=== PATIENT | male | born 1965 | race Caucasian/White ===

== ENCOUNTER 2020-05-18 11:21 | Outpatient (REF) | payer OTHER, SELFPAY ==
[2020-05-18 13:11] LABS: Alanine Aminotransferase 8 U/L (0-40); Albumin Level 4.5 g/dL (3.5-5.0); Alkaline Phosphatase 65 U/L (39-117); Anion Gap 16 (12-20); Aspartate Amino Transferase 15 U/L (5-37); Bilirubin Total 0.5 mg/dL (0.0-1.0); Blood Urea Nitrogen 12 mg/dL (9-16); Calcium 9.2 mg/dL (8.4-10.2); Carbon Dioxide 21 mmol/L (22-29); Chloride 106 mmol/L (96-108); Cholesterol 167 mg/dL; Estimated Glomerular Filt Rate > 60; Glucose Fasting 83 mg/dL (60-99); HDL Cholesterol 36 mg/dL; LDL Cholesterol Calculated 95 mg/dl; Potassium 4.5 mmol/l (3.3-5.1); Sodium 138 mmol/L (135-145); Total Protein 6.8 g/dL (6.5-8.0); Triglycerides 183 mg/dL
== END 2020-05-18 11:22 | disposition home or self-care (01) ==
LOC: HO.LAB 11:21
PROVIDERS: PCP Internal Medicine; Visit Provider Internal Medicine
DX: E78.2 Mixed hyperlipidemia (principal)
CPT/HCPCS: 80053; 80061

== ENCOUNTER → 2020-05-20 10:02 | Outpatient (BNVA) | payer OTHER, SELFPAY | PROVIDERS: PCP Internal Medicine; Visit Provider Internal Medicine | DX: Z72.89 Other problems related to lifestyle (principal); F17.200 Nicotine dependence, unspecified, uncomplicated; Z71.6 Tobacco abuse counseling | CPT/HCPCS: 80305; 99212 ==

== ENCOUNTER → 2020-08-17 10:37 | Outpatient (BNVA) | payer OTHER, SELFPAY | PROVIDERS: Visit Provider Internal Medicine ==

== ENCOUNTER 2020-11-17 13:49 | Outpatient (REF) | payer OTHER, SELFPAY ==
--- NOTE | ~2020-11-17 | XR_ITS ---
EXAMINATION: XR LUMBOSACRAL SPINE CLINICAL INFORMATION: Low back pain COMPARISON: CT abdomen pelvis January 27, 2018 TECHNIQUE: Three views of the lumbosacral spine. FINDINGS: 5 nonrib-bearing lumbar vertebral bodies are visualized. There is minimal levoscoliosis centered at L3. There is also mild anterolisthesis of L5 on S1. There are mild degenerative changes of the posterior elements of the lower lumbar spine. Sacroiliac joints are symmetric. Small vascular calcifications are noted. XR/XR lumbar spine 2-3V IMPRESSION: Mild degenerative changes of the lower lumbar spine. No compression deformity.
[2020-11-17 15:17] LABS: MANUAL DIFF FLAG NO
[2020-11-17 15:22] LABS: Basophils Absolute Auto 0.1 X10*3/uL (0.0-0.2); Basophils Percent Auto 0.8 % (0-2); Eosinophils Absolute Auto 0.2 X10*3/uL (0.0-0.4); Eosinophils Percent Auto 1.7 % (0-4); Hematocrit 47.3 % (42-52); Hemoglobin 15.7 g/dl (14.0-18.0); Imm Gran Abs Auto 0.05 X10*3/uL (0.00-0.03); Imm Gran Pct Auto 0.6 % (0.0-0.4); Lymphocytes Absolute Auto 2.3 X10*3/uL (1.2-4.9); Lymphocytes Percent Auto 26.2 % (20-40); Mean Corpuscular HGB Conc 33.2 g/dl (31.0-36.0); Mean Corpuscular Hemoglobin 30.9 pg (27.0-33.0); Mean Corpuscular Volume 93.1 fL (80-98); Mean Platelet Volume 9.4 fL (9.4-12.4); Monocytes Absolute Auto 0.7 X10*3/uL (0.1-1.2); Monocytes Percent Auto 7.7 % (2-11); Neutrophils Absolute Auto 5.4 X10*3/uL (2.0-8.3); Platelet Count 287 X10*3/uL (160-400); Red Blood Count 5.08 X10*6/uL (4.60-5.80); Red Cell Distribution Width 13.2 % (11.0-16.0); White Blood Count 8.6 X10*3/uL (4.8-10.8)
[2020-11-17 15:37] LABS: Alanine Aminotransferase 9 U/L (0-40); Albumin Level 4.6 g/dL (3.5-5.0); Alkaline Phosphatase 70 U/L (39-117); Anion Gap 14 (12-20); Aspartate Amino Transferase 13 U/L (5-37); Bilirubin Total 0.4 mg/dL (0.0-1.0); Blood Urea Nitrogen 11 mg/dL (9-16); C Reactive Protein 0.07 mg/dL (< or = 0.50); Calcium 9.7 mg/dL (8.4-10.2); Carbon Dioxide 26 mmol/L (22-29); Chloride 106 mmol/L (96-108); Cholesterol 201 mg/dL; Estimated Glomerular Filt Rate > 60; Glucose Fasting 85 mg/dL (60-99); HDL Cholesterol 35 mg/dL; LDL Cholesterol Calculated 121 mg/dl; Potassium 4.6 mmol/L (3.3-5.1); Rheumatoid Factor < 15.0 IU/mL (<15.0); Sodium 141 mmol/L (135-145); Triglycerides 227 mg/dL
[2020-11-17 15:44] LABS: Estimated Average Glucose 94 mg/dL; Hemoglobin A1c % 4.9 %
[2020-11-17 16:01] LABS: TSH reflex Free T4 1.32 uIU/mL (0.32-4.0); Vitamin D 25-OH Total 4.1 ng/mL (>30)
[2020-11-17 16:26] LABS: Erythrocyte Sedimentation Rate 2 MM/HR (0-15)
== END 2020-11-17 13:50 | disposition home or self-care (01) ==
LOC: HO.LAB 13:49
PROVIDERS: PCP Internal Medicine; Visit Provider Internal Medicine
DX: M54.5 Low back pain (principal); I10 Essential (primary) hypertension; R73.01 Impaired fasting glucose; E55.9 Vitamin D deficiency, unspecified; E78.00 Pure hypercholesterolemia, unspecified; M06.9 Rheumatoid arthritis, unspecified; E78.2 Mixed hyperlipidemia
CPT/HCPCS: 36415; 72100; 80053; 80061; 82306; 83036; 84443; 85025; 85652; 86140; 86431

== ENCOUNTER → 2020-12-08 11:05 | Outpatient (BNVA) | payer OTHER, SELFPAY | PROVIDERS: PCP Internal Medicine; Visit Provider Internal Medicine | DX: Z72.89 Other problems related to lifestyle (principal) | CPT/HCPCS: 80305; 99212 ==

== ENCOUNTER 2022-09-05 08:59 | Outpatient (REF) | payer OTHER, SELFPAY ==
[2022-09-05 09:22] LABS: MANUAL DIFF FLAG NO
[2022-09-05 10:50] LABS: Basophils Absolute Auto 0.1 X10*3/uL (0.0-0.2); Basophils Percent Auto 0.7 % (0-2); Eosinophils Absolute Auto 0.3 X10*3/uL (0.0-0.4); Eosinophils Percent Auto 3.2 % (0-4); Hematocrit 48.2 % (42.0-52.0); Hemoglobin 16.2 g/dl (14.0-18.0); Imm Gran Abs Auto 0.03 X10*3/uL (0.00-0.03); Imm Gran Pct Auto 0.4 % (0.0-0.4); Lymphocytes Absolute Auto 2.4 X10*3/uL (1.2-4.9); Lymphocytes Percent Auto 28.3 % (20-40); Mean Corpuscular HGB Conc 33.6 g/dl (31.0-36.0); Mean Corpuscular Hemoglobin 30.9 pg (27.0-33.0); Mean Corpuscular Volume 91.8 fL (80.0-98.0); Mean Platelet Volume 9.8 fL (9.4-12.4); Monocytes Absolute Auto 0.7 X10*3/uL (0.1-1.2); Monocytes Percent Auto 7.8 % (2-11); Neutrophils Percent Auto 59.6 % (45-73); Platelet Count 293 X10*3/uL (160-400); Red Blood Count 5.25 X10*6/uL (4.60-5.80); Red Cell Distribution Width 13.2 % (11.0-16.0); White Blood Count 8.4 X10*3/uL (4.8-10.8)
[2022-09-05 10:57] LABS: Appearance Urine Clear; Color Urine Yellow; Glucose Urine UA Negative (Negative); Leukocyte Esterase Urine Negative (Negative); Nitrite Urine Negative (Negative); Specific Gravity - Urine 1.015 (1.005-1.025); Urine Blood Negative (Negative); Urine Ketones Negative (Negative); Urine Protein Negative (Neg-Trace)
[2022-09-05 11:32] LABS: Alanine Aminotransferase 15 U/L (0-40); Albumin Level 4.4 g/dL (3.5-5.0); Alkaline Phosphatase 70 U/L (39-117); Anion Gap 16 (12-20); Aspartate Amino Transferase 15 U/L (5-37); Bilirubin Total 0.6 mg/dL (0.0-1.0); Blood Urea Nitrogen 8 mg/dL (9-16); Calcium 9.5 mg/dL (8.4-10.2); Carbon Dioxide 25 mmol/L (22-29); Chloride 108 mmol/L (96-108); Cholesterol 209 mg/dL; Estimated Glomerular Filt Rate > 60; Glucose Fasting 87 mg/dL (60-99); HDL Cholesterol 39 mg/dL; LDL Cholesterol Calculated 135 mg/dl; Potassium 4.6 mmol/L (3.3-5.1); Sodium 144 mmol/L (135-145); Total Protein 6.8 g/dL (6.5-8.0); Triglycerides 175 mg/dL
[2022-09-05 11:36] LABS: Prostate Specific Antigen Scr 0.84 ng/mL (<0.05-4.0); TSH reflex Free T4 1.36 uIU/mL (0.32-4.0); Vitamin D 25-OH Total 7.1 ng/mL (>30)
== END 2022-09-05 09:00 | disposition home or self-care (01) ==
LOC: HO.LAB 08:59
PROVIDERS: PCP Internal Medicine; Visit Provider Internal Medicine
DX: Z00.00 Encounter for general adult medical examination without abnormal findings (principal); E55.9 Vitamin D deficiency, unspecified; I10 Essential (primary) hypertension; E78.00 Pure hypercholesterolemia, unspecified; R06.09 Other forms of dyspnea
CPT/HCPCS: 36415; 80053; 80061; 81003; 82306; 84153; 84443; 85025

== ENCOUNTER 2022-09-29 12:02 | Outpatient (REF) | payer OTHER, SELFPAY ==
--- NOTE | ~2022-09-29 | XR_ITS ---
EXAMINATION: XR CHEST CLINICAL INFORMATION: R06.09 - Other forms of dyspnea COMPARISON: Chest radiographs 11/05/2009 TECHNIQUE: 2 views of the chest were obtained. FINDINGS: There is mild hyperinflation. The lungs are clear. The vascularity is normal. No coarsening bronchiolar markings, infiltrate, or effusion. The heart is normal in size. The hilar and mediastinal contours are unremarkable. No acute bony abnormality. XR/XR chest 2V IMPRESSION: Mild hyperinflation. Lungs clear.
--- NOTE | 2022-09-29 17:26 | PFT_ITS ---
INDICATION: Dyspnea. SPIROMETRY: FEV1 to FVC of 60% with an FEV1 of 2.72 L, which is 74% predicted. FVC of 4.53 L, which is 95% predicted. There was a significant response to bronchodilators noted. Significant small airway disease noted. Maximum voluntary ventilation 54% predicted. LUNG VOLUMES: Total lung capacity 89% predicted. DIFFUSION CAPACITY: DLCO 50% predicted. COMPARISONS: None. INTERPRETATION: There is an obstructive ventilatory defect, consistent with moderate COPD. There was a significant response to bronchodilators noted and also significant small airway disease. Moderate decrease in the maximum voluntary ventilation, likely secondary to decongestion. Lung volumes with a trend of air trapping and there is a moderate diffusion impairment, likely due to emphysema and other parenchymal lung condition should be considered. Clinical correlation warranted. Aureliano Dodd MD MR/MODL / [id number]
== END 2022-09-29 12:03 | disposition home or self-care (01) ==
LOC: HO.RESP 12:02
PROVIDERS: PCP Internal Medicine; Visit Provider Internal Medicine
DX: R06.09 Other forms of dyspnea (principal)
CPT/HCPCS: 71046; 94060; 94727; 94729

== ENCOUNTER 2023-09-24 13:08 | Emergency (ER) | payer OTHER, SELFPAY ==
--- NOTE | ~2023-09-24 | XR_ITS ---
EXAMINATION: XR ANKLE, LEFT CLINICAL INFORMATION: Pain after fall COMPARISON: None available. TECHNIQUE: AP, lateral, and mortise views of the left ankle. FINDINGS: Considerable lateral soft tissue swelling is evident. There is a probable tiny nondisplaced avulsion fracture from the tip of the lateral malleolus. The talar dome and ankle mortise are intact as is the DIP distal tibia. XR/XR ankle LT min 3V IMPRESSION: 1. Considerable lateral soft tissue swelling with probable tiny nondisplaced avulsion fracture from the lateral malleolus.
[2023-09-24 13:22] VITALS: BP 99/68; PULSE 82; RESP 20; TEMP 36.6; O2SAT 97; BMI 25.1
--- NOTE | 2023-09-24 13:23 | ED.GENADULT ---
HPI - General Adult General Chief complaint: Extremity Injury, Lower Stated complaint: Left ankle injury Time Seen by Provider: 09/24/23 14:59 Source: patient Mode of arrival: wheelchair Limitations: no limitations History of Present Illness HPI narrative: Patient is a 57 year old assigned male at with a history of tobacco use and RA presenting to the emergency department today with left ankle pain. Patient states that earlier he rolled his left ankle going down stairs. Patient denies any head strike, loss of consciousness, dizziness, lightheadedness, abdominal pain, nausea, vomiting, fever, chills, blurry vision, double vision, loss of vision, chest pain, difficulty breathing, shortness of breath, back pain, night sweats, pain with urination, increased urinary frequency, increased urinary urgency, blood in his urine or stool, syncope or a near syncopal episode, bowel incontinence, bladder incontinence, bowel retention, bladder retention, or any other complaints at this time. Onset (ago): hour(s) Location: left and lower extremity Radiation: non-radiation Severity: mild Severity scale (1-10): 3 Quality: aching and dull Pain Consistency: constant Relieving factors: none Exacerbating factors: none Associated symptoms: denies other symptoms Treatments prior to arrival: none Related Data Home Medications Medication Instructions Recorded Confirmed vitamin B complex 1 cap PO DAILY 05/19/20 09/05/22 Previous Rx's Medication Instructions Recorded albuterol sulfate 90 mcg/actuation 2 puff inhalation Q6H PRN 05/19/20 aerosol inhaler shortness of breath or wheezing 30 days #18 grams nebulizers #1 ea 08/18/20 ipratropium 0.5 mg-albuterol 3 mg 3 ml inhalation QID PRN shortness 08/27/20 (2.5 mg base)/3 mL nebulization of breath or wheezing #180 mL soln folic acid 1 mg tablet 1 mg PO DAILY 30 days #30 tabs 02/22/21 omeprazole 40 mg capsule,delayed 40 mg PO DAILY #30 caps 06/20/22 release fluticasone propionate 50 1 spray intranasal DAILY #16 mL 03/20/23 mcg/actuation nasal spray,suspension fenofibrate nanocrystallized 145 145 mg PO DAILY #30 tabs 08/24/23 mg tablet ibuprofen 600 mg tablet 600 mg PO TID PRN for pain #90 tabs 08/29/23 tiotropium bromide 2.5 2 puff inhalation DAILY 30 days #4 08/29/23 mcg/actuation mist for inhalation grams (Spiriva Respimat) atorvastatin 20 mg tablet 20 mg PO DAILY #90 tabs 09/22/23 Allergies Allergy/AdvReac Type Severity Reaction Status Date / Time Influenza Virus Vaccines Allergy Unknown gets sick Verified 09/05/22 15:40 everytime he gets injection colesevelam [WelChol] AdvReac Intermediate nausea and Verified 09/05/22 15:40 vomiting Review of Systems Constitutional: Constitutional: Reports no additional constitutional complaints, Denies chills, Denies fever(s) and Denies night sweats Eyes: Eyes: Reports no additional eye complaints, Denies blurry vision, Denies change in vision, Denies diplopia, Denies eye discharge, Denies loss of vision and Denies eye pain ENT: Denies dizziness Cardiovascular: Cardiovascular: Reports no additional cardiovascular complaints, Denies chest pain, Denies lightheadedness, Denies Loss of Consciousness and Denies dyspnea Respiratory: Respiratory: Reports no additional respiratory complaints and Denies dyspnea Gastrointestinal: Gastrointestinal: Reports no additional gastrointestinal complaints, Denies abdominal pain, Denies melena, Denies hematochezia, Denies change in bowel habits and Denies change in stool character Genitourinary: Genitourinary: Reports no additional male genitourinary complaints, Denies hematuria, Denies oliguria, Denies difficulty urinating, Denies dysuria, Denies urinary frequency, Denies urinary hesitancy, Denies urinary incontinence and Denies urinary urgency Musculoskeletal: Musculoskeletal: Reports no additional musculoskeletal complaints, Denies numbness and Denies tingling Comments: left ankle pain Neurologic: Denies dizziness, Denies loss of vision, Denies numbness and Denies tingling Psychiatric: Psychiatric: Reports no additional psychiatric complaints Endocrine: Endocrine: Reports no additional endocrine complaints Hematologic/Lymphatic: Hematologic/Lymphatic: Reports no additional hematologic/lymphatic complaints Allergic/Immunologic: Allergic/Immunologic: Reports no additional allergic/immunologic complaints PMFSH Past Medical History Attestation statement: The following information was validated with the patient. Source: old records reviewed and nursing notes reviewed Medical History Colon cancer screening Overweight (BMI 25.0-29.9) Annual physical exam Right lumbar pain Smoker GERD without esophagitis Tobacco use disorder Alcohol use disorder Rheumatoid arthritis Impaired fasting glucose COPD (chronic obstructive pulmonary disease) Benign essential hypertension Mixed hyperlipidemia Surgical History History of nephrolithiasis History of inguinal hernia repair Family History Family History Father Hypertension Mother Hypertension Social History Social History Alcohol intake: former Patient Tobacco Use Status: Current everyday Tobacco user Tobacco use type: Cigarette Cigarettes Per Day: 15 Smoked in Last 30 Days: Yes e-Cigarette/Vaping Use: Never Used Use of substances other than those prescribed or required for medical reasons: No Advance Directives: No Advance Directives Information Provided: No Physical Exam ED Vital Signs: Vital Signs - 24 hr 09/24/23 13:22 09/24/23 15:10 Temperature 97.9 F 98 F Pulse Rate 82 78 Respiratory Rate 20 16 Blood Pressure 99/68 118/68 Pulse Oximetry 97 98 Oxygen Delivery Method Room Air Room Air BMI result Body Mass Index 25.1 Const General: cooperative, no acute distress, alert and awake Nutritional Appearance: well nourished Orientation/consciousness: patient oriented x3 Limitations: no limitations HENMT Head: Yes normal to inspection and Yes atraumatic Ears: hearing grossly normal bilaterally and external ears normal General nose exam: Normal external nose present, no nasal discharge noted and no epistaxis Face and sinus: Yes normal facial exam, No abrasion and No laceration Mouth: Normal oral and palatal mucosa present, no drooling and no muffled voice Eyes General: appearance normal, both eyes and all related structures Periorbital: periorbital findings normal Eyelids: Yes eyelids normal Conjunctivae: conjunctivae normal Pupils: Equal, round and reactive pupils present EOM: EOMs intact bilaterally Neck Neck: Yes normal visual inspection, Yes full ROM and Yes no lymphadenopathy Chest Chest palpation & inspection: normal inspection of the chest Resp Effort & Inspection: normal respiratory effort and able to speak in complete sentences GI Inspection: Yes normal to inspection Neuro General: patient oriented x3 and moves all extremities Cranial nerves: Yes Equal, round and reactive pupils present Cognition (Neuro): normal cognition Motor exam (neuro): 5/5 motor strength present throughout Sensory Exam: Normal double simultaneous stimulation for sensation Coordination: [id number] test normal Extrem Other: minimal swelling to the left ankle General: Yes full ROM and Yes capillary refill normal Psych Appearance: grossly normal Mental Status: mental status grossly normal Affect: normal affect Attitude: cooperative Thought process: Normal thought process present Thought content: Normal thought content present Insight: Good insight present (Psych) Course Course Course Narrative: RME- 57 year old male presents for evaluation of left ankle pain after a fall. Plan for x-ray. He has lateral malleolus edema and tenderness on exam Procedures Orthopedic Splinting/Casting Injury #1: Side: left Lower Extremity Injury Location: ankle Lower Extremity Immobilizer: boot orthosis Other Orthopedic Equipment: crutches Medical Decision Making Medical Decision Making MDM Narrative: Patient is a 57 year old assigned male at with a history of tobacco use and RA presenting to the emergency department today with left ankle pain. Patient's physical exam was as noted in the physical exam portion of this note. Patient's left ankle x-ray showed evidence of a fracture. I explained my physical exam findings as well as all test results to the patient. I answered all questions asked by the patient. Patient's left ankle was placed in a walking boot, without incident. Patient's PMS was intact prior to and after boot placement. Patient was given crutches with crutch instructions. I stressed the importance of the patient taking his medication as prescribed. I stressed the importance of the patient following up with his primary care provider and an orthopedic provider. I stressed the importance of the patient returning to the emergency department immediately if his symptoms were to worsen or if he were to develop any dizziness, shortness of breath, difficulty breathing, chest pain, blurry vision, loss of vision, nausea, vomiting, abdominal pain, fever, chills, back pain, or any other complaints. Patient verbalized agreement and understanding with this treatment plan and discharge. Differential Diagnosis Differential Diagnoses: The differential diagnosis associated with the presentation includes Ankle fracture Ankle strain Ankle sprain Admission/Observation Consideration of admission/observation: Escalation of care including admission/observation considered Patient would have been admitted to the hospital had his work up had any findings where hospital admission was appropriate and his clinical presentation warranted hospital admission. Independent Interpretation I performed an independent interpretation of an: Plain X-Ray Interpretation: My interpretation is in agreement with the radiologist's impression of this imaging study. EXAMINATION: XR ANKLE, LEFT CLINICAL INFORMATION: Pain after fall COMPARISON: None available. TECHNIQUE: AP, lateral, and mortise views of the left ankle. FINDINGS: Considerable lateral soft tissue swelling is evident. There is a probable tiny nondisplaced avulsion fracture from the tip of the lateral malleolus. The talar dome and ankle mortise are intact as is the DIP distal tibia. XR/XR ankle LT min 3V IMPRESSION: 1. Considerable lateral soft tissue swelling with probable tiny nondisplaced avulsion fracture from the lateral malleolus. Dictated By: Black Linares MD Signed By: Electronically signed by Black Linares MD 09/24/23 [id number] Radiology Impression Discussion of test interpretation with radiology: I have reviewed the radiologist's reading. Discharge Plan Discharge Clinical Impression: Ankle fracture Patient Disposition: Home, Self-Care Instructions: Ankle Fracture (DC) Additional Instructions: Follow up with your primary care provider. Return to the emergency department immediately if your symptoms worsen or if you develop any dizziness, shortness of breath, difficulty breathing, chest pain, blurry vision, loss of vision, nausea, vomiting, abdominal pain, fever, chills, back pain, or any other complaints. Prescriptions: No Action ipratropium-albuterol 0.5 mg-3 mg(2.5 mg base)/3 mL solution for nebulization 3 ml inhalation QID PRN (Reason: shortness of breath or wheezing) Qty: 180 0RF folic acid 1 mg tablet 1 mg PO DAILY 30 Days Qty: 30 11RF omeprazole 40 mg capsule,delayed release(DR/EC) 40 mg PO DAILY Qty: 30 5RF fluticasone propionate 50 mcg/actuation spray,suspension 1 spray intranasal DAILY Qty: 16 0RF fenofibrate nanocrystallized 145 mg tablet 145 mg PO DAILY Qty: 30 5RF Spiriva Respimat 2.5 mcg/actuation mist 2 puff inhalation DAILY 30 Days Qty: 4 0RF ibuprofen 600 mg tablet 600 mg PO TID PRN (Reason: for pain) Qty: 90 0RF atorvastatin 20 mg tablet 20 mg PO DAILY Qty: 90 0RF vitamin B complex Capsule 1 cap PO DAILY albuterol sulfate 90 mcg/actuation HFA aerosol inhaler 2 puff inhalation Q6H PRN (Reason: shortness of breath or wheezing) 30 Days Qty: 18 3RF (DME) nebulizers [facility] [place] See Rx Instructions .ROUTE .MEDSUPPLY Qty: 1 0RF Rx Instructions: As directed Referrals: [facility] [place] [facility] [Provider Group] (Call to establish and follow up with an orthopedic provider. ) Celestino Burr MD [Primary Care Provider] - Stand Alone Forms: Work/School Release Interventions: ED Discharge Assessment Last Done: 09/24/23 15:32 Discharge Date/Time: 09/24/23 15:25 Print Language: Georgian
[2023-09-24 15:10] VITALS: BP 118/68; PULSE 78; RESP 16; TEMP 36.6; O2SAT 98
== END 2023-09-24 15:25 | disposition home or self-care (01) ==
PROVIDERS: Emergency Provider Student in an Organized Health Care Education/Training Program; PCP Internal Medicine
DX: S82.892A Other fracture of left lower leg, initial encounter for closed fracture (principal); M79.605 Pain in left leg; F17.200 Nicotine dependence, unspecified, uncomplicated; W10.9XXA Fall (on) (from) unspecified stairs and steps, initial encounter; Y93.9 Activity, unspecified; Y92.9 Unspecified place or not applicable; Y99.8 Other external cause status
CPT/HCPCS: 29515; 73610; 99283; 99284

== ENCOUNTER 2023-10-02 09:30 | Outpatient (REF) | payer OTHER, SELFPAY ==
[2023-10-02 09:58] LABS: MANUAL DIFF FLAG NO
[2023-10-02 10:47] LABS: Basophils Absolute Auto 0.1 X10*3/uL (0.0-0.2); Basophils Percent Auto 0.5 % (0-2); Eosinophils Absolute Auto 0.2 X10*3/uL (0.0-0.4); Eosinophils Percent Auto 2.2 % (0-4); Hemoglobin 15.1 g/dl (14.0-18.0); Imm Gran Abs Auto 0.06 X10*3/uL (0.00-0.03); Imm Gran Pct Auto 0.6 % (0.0-0.4); Lymphocytes Absolute Auto 2.6 X10*3/uL (1.2-4.9); Lymphocytes Percent Auto 24.4 % (20-40); Mean Corpuscular HGB Conc 33.6 g/dl (31.0-36.0); Mean Corpuscular Hemoglobin 30.6 pg (27.0-33.0); Mean Corpuscular Volume 91.1 fL (80.0-98.0); Mean Platelet Volume 8.8 fL (9.4-12.4); Monocytes Absolute Auto 0.8 X10*3/uL (0.1-1.2); Monocytes Percent Auto 7.3 % (2-11); Neutrophils Absolute Auto 6.8 x10*3/uL (2.0-8.3); Platelet Count 297 X10*3/uL (160-400); Red Blood Count 4.94 X10*6/uL (4.60-5.80); Red Cell Distribution Width 13.2 % (11.0-16.0); White Blood Count 10.5 X10*3/uL (4.8-10.8)
[2023-10-02 11:37] LABS: Alanine Aminotransferase 11 U/L (0-40); Albumin Level 4.4 g/dL (3.5-5.0); Alkaline Phosphatase 59 U/L (39-117); Anion Gap 13 (12-20); Aspartate Amino Transferase 14 U/L (5-37); Bilirubin Total 0.5 mg/dL (0.0-1.0); Blood Urea Nitrogen 14 mg/dL (9-16); C Reactive Protein 0.12 mg/dL (< or = 0.50); Calcium 9.5 mg/dL (8.4-10.2); Carbon Dioxide 26 mmol/L (22-29); Chloride 108 mmol/L (96-108); Cholesterol 207 mg/dL (<200); Estimated Glomerular Filt Rate > 60; Glucose Fasting 105 mg/dL (60-99); HDL Cholesterol 37 mg/dL (>40); LDL Cholesterol Calculated 120 mg/dL (<100); Magnesium 1.9 mg/dL (1.6-2.6); Potassium 4.3 mmol/L (3.3-5.1); Sodium 143 mmol/L (135-145); Total Protein 7.3 g/dL (6.5-8.0); Triglycerides 250 mg/dL (<150)
[2023-10-02 11:43] LABS: Rheumatoid Factor < 13.0 IU/mL (<15.0)
[2023-10-02 11:54] LABS: Erythrocyte Sedimentation Rate 7 MM/HR (0-15)
[2023-10-02 11:55] LABS: TSH reflex Free T4 1.96 uIU/mL (0.32-4.0); Vitamin D 25-OH Total 9.7 ng/mL (>30)
[2023-10-02 12:09] LABS: Folate 3.5 ng/mL (> or = 4.0); Vitamin B12 213 pg/mL (200-900)
[2023-10-04 11:23] LABS: Cyclic Citrullinated Peptide <16 UNITS
[2023-10-05 15:13] LABS: Anti Nuclear Antibody Screen POSITIVE (NEGATIVE); Anti Nuclear Antibody Titer 1:40 titer
== END 2023-10-02 09:31 | disposition home or self-care (01) ==
LOC: HO.LAB 09:30
PROVIDERS: PCP Internal Medicine; Visit Provider Internal Medicine
DX: E53.8 Deficiency of other specified B group vitamins (principal); R30.0 Dysuria; E55.9 Vitamin D deficiency, unspecified; M06.9 Rheumatoid arthritis, unspecified; E83.42 Hypomagnesemia; M25.50 Pain in unspecified joint; E78.00 Pure hypercholesterolemia, unspecified
CPT/HCPCS: 36415; 80053; 80061; 82306; 82607; 82746; 83735; 84443; 85025; 85652; 86038; 86039; 86140; 86200; 86431

== ENCOUNTER 2023-10-02 16:17 | Outpatient (AMB) | payer OTHER, SELFPAY ==
[2023-10-02 16:23] VITALS: BP 100/62; PULSE 59; O2SAT 98; BMI 24.7
--- NOTE | 2023-10-02 16:23 | A.OFFPC_ITS ---
Vital Signs 10/02/23 16:23 Height 5 ft 9 in Weight 167 lb BMI 24.7 BP 100/62 Blood Pressure Location Lt brachial Position Sitting Pulse 59 Pulse Source Pulse Oximeter Pulse Oximetry (%) 98 Oxygen Delivery Method Room Air Intake Visit Reasons: Hernia F/U Brand Communications Manager Required: No Title Examiner: Not Required per policy Accompanied by: Self / Same As Patient Allergies Influenza Virus Vaccines Allergy (Unknown, Verified 10/06/23 12:45) gets sick everytime he gets injection colesevelam [WelChol] Adverse Reaction (Intermediate, Verified 10/03/23 09:31) nausea and vomiting Medication List - Last Reconciled 10/03/23 by Celestino Burr MD albuterol sulfate 90 mcg/actuation 2 puffs inhalation Q6H PRN 30 days atorvastatin 20 mg PO DAILY fenofibrate nanocrystallized 145 mg PO DAILY fluticasone propionate 50 mcg/actuation 1 spray intranasal DAILY folic acid 1 mg PO DAILY 30 days ibuprofen 600 mg PO TID PRN ipratropium-albuterol 0.5 mg-3 mg(2.5 mg base)/3 mL 3 mL inhalation QID PRN nebulizers As directed omeprazole 40 mg PO DAILY tiotropium bromide 2.5 mcg/actuation (Spiriva Respimat) 2 puffs inhalation DAILY 30 days vitamin B complex 1 cap PO DAILY Tobacco use date assessed: 10/02/23 Dental Screening Dental Screen Date: 10/02/23 Did you have a dental visit in the last 12 months?: Yes Did you have a dental problem in the last 6 months where you did not have access to dental care?: No Was dental information given to patient?: Patient has dentist HPI Hernia F/U HPI Details Patient comes in today for his follow up visit - was last seen by me in August 2022 Patient states that he fell down some stairs recently - reportedly missed a step while going down stairs at home Monday a week ago on 09/24/23 and sustained a fracture of his left ankle He went to the ER after his accident and his left ankle and foot was placed in a boot and he is scheduled to see orthopedics later this week for further evaluation and management of his ankle fracture States that he's had a left inguinal hernia for over 10 yrs It was mostly reducible for a while but has noticed that it has been getting bigger recently and now is also associated with on and off discomfort and sometimes pain He also has a prominent umbilical hernia that he would like to have addressed at the same time if possible States that he feels okay otherwise He denies any headaches or dizziness Denies any chest pains, no SOB No nausea/vomiting, no abdominal pain No change in bowel habits noted He had his follow up labs done earlier this morning - to discuss his results He is also requesting again for a hearing referral to recheck his hearing - has hearing loss [facility] Medical History Colon cancer screening Overweight (BMI 25.0-29.9) Annual physical exam Right lumbar pain Smoker GERD without esophagitis Tobacco use disorder Alcohol use disorder Rheumatoid arthritis Impaired fasting glucose COPD (chronic obstructive pulmonary disease) Benign essential hypertension Mixed hyperlipidemia Surgical History History of nephrolithiasis History of inguinal hernia repair Family History Father Hypertension Mother Hypertension Social History (Updated 10/06/23 @ 12:45 by STEPHON Pruitt) Alcohol intake: former Patient Tobacco Use Status: Current everyday Tobacco user Tobacco use type: Cigarette Cigarettes Per Day: 15 e-Cigarette/Vaping Use: Never Used Current occupational status: unemployed Cognitive needs: No Hearing needs: No Vision needs: Yes (glasses) Questionnaire PHQ-9 Over the last 2 weeks, how often have you been bothered by any of the following problems? 1. Little interest or pleasure in doing things: not at all 2. Feeling down, depressed, or hopeless: not at all 3. Trouble falling or staying asleep, or sleeping too much: not at all 4. Feeling tired or having little energy: not at all 5. Poor appetite or overeating: not at all 6. Feeling bad about yourself - or that you are a failure or have let yourself or your family down: not at all 7. Trouble concentrating on things, such as reading the newspaper or watching television: not at all 8. Moving or speaking so slowly that other people could have noticed. Or the opposite - being so fidgety or restless that you have been moving around a lot more than usual: not at all 9. Thoughts that you would be better off or of hurting yourself in some way: not at all Total score: 0 Depression Screening Interpretation: Negative Depression Screening Done: Yes 70980 - PHQ-9 Billing: Yes Source: Developed by Drs. Shine Major, Mary Ngo, Etienne Park and colleagues, with an educational carrington from [employer]. Thrive Questionnaire Date Thrive assessed: 10/02/23 I am a: Patient What is your living situation today?: I have a steady place to live Within the past 12 months, did the food you bought not last and you didn't have the money to get more?: Never true Within the past 12 months, did you worry whether your food would run out before you got money to buy more?: Never true Do you have trouble paying for medicines?: No Do you have trouble getting transportation to medical appointments?: No Do you have trouble paying your heating and electricity bill?: No Do you have trouble taking care of your child, family member or friend?: No Do you have trouble with day-to-day activities such as bathing, preparing meals, shopping, managing finances, etc.?: No Are you currently unemployed and looking for a job?: No Are you interested in more education?: No Please select the resources that you would like help with: None Currently or been in a relationship where the following occur: no concerns reported THRIVE Score: 0 AUDIT C Alcohol Use Questionnaire (AUDIT-C) 1. How often do you have a drink containing alcohol?: Never 3. How often do you have six or more drinks on one occasion?: Never Total Score: 0 Score Reviewed/Action Taken: Yes KRISTY-7 AMB Questionnaire KRISTY-7 Date KRISTY - 7 assessed: 10/02/23 Feeling nervous, anxious, or on edge: 0 = Not at all Not being able to stop or control worryin = Not at all Worrying too much about different things: 0 = Not at all Trouble relaxin = Not at all Being so restless that it is hard to sit still: 0 = Not at all Becoming easily annoyed or irritable: 0 = Not at all Feeling afraid as if something awful might happen: 0 = Not at all Total KRISTY-7 score (0-4 normal; 5-9 mild; 10-14 moderate; 15-21 severe): 0 Source: Developed by Drs. Shine Major, Mary Ngo, Etienne Park and colleagues, with an educational carrington from [employer]. Review of Systems Const Denies chills, Denies fatigue, Denies fever(s) and Denies headache(s) ENT Denies dysphagia, Denies dizziness, Denies otalgia, Denies headache(s), Denies neck pain, Denies odynophagia and Denies sore throat Card Denies chest pain, Denies palpitations and Denies dyspnea Resp Denies cough and Denies dyspnea GI Details: (+) large left inguinal hernia and smaller umbilical hernia Denies abdominal pain, Denies constipation, Denies dysphagia, Denies heartburn, Denies diarrhea, Denies nausea, Denies odynophagia and Denies vomiting Details: (+) hernias over the left inguinal area and at the umbilicus Denies dysuria, Denies nocturia and Denies urinary frequency Musc Reports arthralgias (left ankle) and Denies neck pain Skin/Breast Denies rash Neuro Denies dizziness and Denies headache(s) Endo Denies fatigue and Denies palpitations Physical exam (Primary Care) Vital Signs: Last Vital Signs Pulse 59 10/02/23 16:23 BP 100/62 10/02/23 16:23 Pulse Ox 98 10/02/23 16:23 Oxygen Delivery Method Room Air 10/02/23 16:23 BMI result Body Mass Index 24.7 Tobacco/Smoking Status: Tobacco use Status Tobacco use date assessed 10/02/23 10/02/23 16:24 Patient Tobacco Use Status Current everyday Tobacco 10/02/23 16:24 Tobacco use type Cigarette 10/02/23 16:24 e-Cigarette/Vaping Use Never Used 10/02/23 16:24 PHQ-9: PHQ-9 Score PHQ-9: Total score 0 10/03/23 09:30 Depression Screening Interpretation: Negative Thrive Assessment: Date of Thrive Assessment Date Thrive assessed 10/02/23 10/02/23 16:24 Currently or been in a relationship where the following occur: no concerns reported Const General: no acute distress and alert HENMT Ears: TM's normal bilaterally and EAC's normal Throat: Yes posterior oropharynx normal and Yes tonsils normal (no TP congestion) Neck Neck: Yes no lymphadenopathy and Yes supple Thyroid: Thyroid normal Resp Auscultation: no crackles, no rales, no wheezes and diminished lung sounds bilateral Cardio Rate: regular rate Rhythm: regular rhythm Heart sounds: no murmurs GI Palpation (GI): Soft to palpation, nontender and Hernia present direct inguinal (non-reducible) on the left and umbilical Auscultation: normal bowel sounds General: Yes no CVA tenderness Back/Spine/Pelvis Back: no CVA tenderness Thoracic/Lumbar Spine: No lumbar spinal tenderness Skin Rashes: no rashes Neuro Cranial nerves: Yes CN's II-XII intact bilaterally Extrem General: Yes no clubbing, cyanosis or edema Left lower extremity: ankle (left ankle/foot is currently in a walking boot) Details: tenderness Results Reviewed Results Reviewed: Laboratory Tests 10/02/23 09:57 WBC 10.5 Hgb 15.1 Hct 45.0 Plt Count 297 ESR 7 Sodium 143 Potassium 4.3 Creatinine 1.12 Estimated GFR > 60 Fasting Glucose 105 H Calcium 9.5 Cholesterol 207 H LDL Cholesterol, Calc 120 H HDL Cholesterol 37 L 25-OH Vitamin D Total 9.7 L Folate 3.5 L TSH 1.96 Rheumatoid Factor < 13.0 Assessment and Plan Assessment & Plan (1) Mixed hyperlipidemia: Code(s): E78.2 - Mixed hyperlipidemia Plan: Results of his labs done earlier today reviewed and discussed with patient - advised that his cholesterol levels are okay but are still higher than recommended on his recent labs Reinforced low cholesterol diet Continue Atorvastatin 20 mg QD and Fenofibrate 145 mg QD for now - will hold off on raising his dosages as he has a Hx of significantly elevated LFTs Will recheck his labs and fasting lipids in 4 months for follow up (2) COPD (chronic obstructive pulmonary disease): Comment: PFTs done in October 2018 showed (+) mild to moderate obstructive airway disease with no reversibility Code(s): J44.9 - Chronic obstructive pulmonary disease, unspecified Qualifiers: COPD type: unspecified COPD Qualified Code(s): J44.9 - Chronic obstructive pulmonary disease, unspecified Plan: Appears stable/controlled Continue Spiriva Respimat 2.5 mcg 2 puffs QD and Albuterol HFA 2 inhalations every 6 hours as needed Patient is again encouraged to quit smoking (3) Impaired fasting glucose: Code(s): R73.01 - Impaired fasting glucose Plan: HgbA1c was at 4.9% when checked a couple of years ago; FBS was slightly elevated at 105 mg/dl on his labs earlier this morning Reinforced low calorie diet/exercise as tolerated (4) GERD without esophagitis: Code(s): K21.9 - Gastro-esophageal reflux disease without esophagitis Plan: Dietary restrictions reinforced Continue Omeprazole 40 mg QD (5) Left inguinal hernia: Code(s): K40.90 - Unilateral inguinal hernia, without obstruction or gangrene, not specified as recurrent Plan: Will refer him to surgery for further management and consideration for surgical repair of his hernia (6) Umbilical hernia: Code(s): K42.9 - Umbilical hernia without obstruction or gangrene Qualifiers: Obstruction and gangrene presence: without obstruction or gangrene Qualified Code(s): K42.9 - Umbilical hernia without obstruction or gangrene Plan: He is being referred to surgery for further management and consideration for hernia repair (7) Closed left ankle fracture: Code(s): S82.892A - Other fracture of left lower leg, initial encounter for closed fracture Qualifiers: Encounter type: sequela Qualified Code(s): S82.892S - Other fracture of left lower leg, sequela Plan: Injury sustained about a week ago on 09/24/2023 - left ankle is currently in a walking boot He has an appointment to see orthopedics later this week for further evaluation and management (8) Hearing impairment: Code(s): H91.90 - Unspecified hearing loss, unspecified ear Qualifiers: Hearing loss type: unspecified Laterality: unspecified laterality Qualified Code(s): H91.90 - Unspecified hearing loss, unspecified ear Plan: Per request, will refer him for hearing evaluation (9) Alcohol use disorder: Comment: He is doing well He is alcohol free for six months however he is using oxycodone for back pain and has not received Vivitrol Plan: In remission - states that he has been sober > 4 to 5 years now Has not been on Vivitrol for a couple of years now and has not needed to see Dr. Peoples for the past few years (10) Smoker: Code(s): F17.200 - Nicotine dependence, unspecified, uncomplicated Plan: Counseled again on smoking cessation (11) Overweight (BMI 25.0-29.9): Code(s): E66.3 - Overweight Plan: Reinforced diet/exercise as tolerated/lose weight Plan Follow up in 4 months Orders: Orders Comprehensive [place]. Panel Fast 4 Months E78.00 - Pure hypercholesterolemia, unspecified Lipid Panel 4 Months E78.00 - Pure hypercholesterolemia, unspecified TSH reflex Free T4 4 Months E78.00 - Pure hypercholesterolemia, unspecified Complete Blood Count Auto Diff 4 Months D64.9 - Anemia, unspecified Referrals General Surgery Referral K40.90 - Unilateral inguinal hernia, without obstruction or gangrene, not specified as recurrent, K42.9 - Umbilical hernia without obstruction or gangrene Speech and Hearing Referral H91.90 - Unspecified hearing loss, unspecified ear Coding Level of Care Code Est Pt Level 4 (44154) Diagnoses Mixed hyperlipidemia E78.2 Chronic obstructive pulmonary disease, unspecified COPD type J44.9 COPD type: unspecified COPD Impaired fasting glucose R73.01 GERD without esophagitis K21.9 Left inguinal hernia K40.90 Umbilical hernia without obstruction and without gangrene K42.9 Obstruction and gangrene presence: without obstruction or gangrene Closed fracture of left ankle, sequela S82.892S Encounter type: sequela Hearing loss, unspecified hearing loss type, unspecified laterality H91.90 Hearing loss type: unspecified Laterality: unspecified laterality Alcohol use disorder F10.90 Smoker F17.200 Overweight (BMI 25.0-29.9) E66.3
== END 2023-10-02 17:23 | disposition home or self-care (01) ==
PROVIDERS: PCP Internal Medicine; Visit Provider Internal Medicine
DX: E78.2 Mixed hyperlipidemia (principal); J44.9 Chronic obstructive pulmonary disease, unspecified; R73.01 Impaired fasting glucose; K21.9 Gastro-esophageal reflux disease without esophagitis; K40.90 Unilateral inguinal hernia, without obstruction or gangrene, not specified as recurrent; K42.9 Umbilical hernia without obstruction or gangrene; S82.892A Other fracture of left lower leg, initial encounter for closed fracture; H91.93 Unspecified hearing loss, bilateral; F10.90 Alcohol use, unspecified, uncomplicated; F17.210 Nicotine dependence, cigarettes, uncomplicated; E66.3 Overweight
CPT/HCPCS: 99214

== ENCOUNTER 2023-10-06 12:27 | Outpatient (AMB) | payer OTHER, SELFPAY ==
--- NOTE | 2023-10-06 12:41 | A.OFFVIS_ITS ---
Intake Vital Signs 10/06/23 12:47 Height 5 ft 9 in Weight 167 lb BMI 24.7 Intake Visit Reasons: FC- LT ankle fx Intake Note: Dennys meehan 58 year old male presents today for an ER follow up of left ankle fx, DOI 09/24/23. Patient reports that he rolled his ankle while going down stairs. He presented to [facility] ED where xrays were obtained and was placed in a walking boot. Current pain level is 6-8 out of 10. States a lump on the the lateral aspect of ankle. Most of his pain comes with resting leg. Finds no relief with ibuprofen. Allergies Influenza Virus Vaccines Allergy (Unknown, Verified 10/06/23 12:45) gets sick everytime he gets injection colesevelam [WelChol] Adverse Reaction (Intermediate, Verified 10/03/23 09:31) nausea and vomiting HPI FC- LT ankle fx HPI Details 58-year-old male who presents to the [facility] today for an ER follow-up of left ankle injury s/p rolling his ankle while going downstairs, 09/24/23. He was seen at ED where x-rays were performed and he was placed in a walking boot. He states he has pain in his ankle which is aggravated with resting his leg. He rates the pain as about 7 on the scale of 0-10. He also c/o a lump on the lateral aspect of his ankle. He finds no relief with ibuprofen. [facility] Medical History Colon cancer screening Overweight (BMI 25.0-29.9) Annual physical exam Right lumbar pain Smoker GERD without esophagitis Tobacco use disorder Alcohol use disorder Rheumatoid arthritis Impaired fasting glucose COPD (chronic obstructive pulmonary disease) Benign essential hypertension Mixed hyperlipidemia Surgical History History of nephrolithiasis History of inguinal hernia repair Family History Father Hypertension Mother Hypertension Social History (Updated 10/06/23 @ 12:45 by STEPHON Pruitt) Alcohol intake: former Patient Tobacco Use Status: Current everyday Tobacco user Tobacco use type: Cigarette Cigarettes Per Day: 15 e-Cigarette/Vaping Use: Never Used Current occupational status: unemployed Cognitive needs: No Hearing needs: No Vision needs: Yes (glasses) Review of Systems Const All systems reviewed & are unremarkable except as noted in HPI and below Physical Exam Vital Signs: BMI result Body Mass Index 24.7 Const General: cooperative, healthy appearing, comfortable, no acute distress, well developed and alert Orientation/consciousness: patient oriented x3 HEENT Head: Yes normal to inspection, Yes normocephalic and Yes atraumatic Eyes General: appearance normal, both eyes and all related structures Resp Effort & Inspection: normal respiratory effort and able to speak in complete sentences Cardio Rate: regular rate Peripheral pulses: Peripheral pulses 2+ throughout GI Palpation (GI): Soft to palpation Skin Lesions: no lesions Rashes: no rashes Neuro General: patient oriented x3 Extrem Other: Left ankle: Normal to inspection with ocalized soft tissue swellingover the lateral malleolus with tenderness along the soft tissues. No discomfort along the posterior aspect of the ankle, no deformity along the Achilles tendon, negative Varma?s. No pain along the syndesmosis or anterior tibia. No laxity, NVI. Results Reviewed Results Reviewed: xrays of the left ankle obtainedi [facility] ED on 09/24/23 are negative for acute fracture or dislocation. Ankle mortise intact. Assessment & Plan Assessment & Plan (1) Left ankle sprain: Code(s): S93.402A - Sprain of unspecified ligament of left ankle, initial encounter Qualifiers: Encounter type: initial encounter Involved ligament of ankle: anterior talofibular ligament Qualified Code(s): S93.492A - Sprain of other ligament of left ankle, initial encounter Plan He will continue wearing the tall walking boot for the next 2 weeks. I would like him to begin a course of physical therapy to work on ROM, gentle strengthening and proprioceptive training. He will also transition to a lace up ankle brace after 2 weeks and increase activity as tolerated. I did stress the importance of activity modification, icing and elevating to help with his swelling. If symptoms persist or worsens, patient will contact the office, otherwise follow-up as needed. Orders: Orders PT Evaluation and Treatment 10/06/23 S93.402A - Sprain of unspecified ligament of left ankle, initial encounter Medications: New ibuprofen 800 mg PO Q8H PRN 90 tabs 3RF pain 30 days Patient Instructions: Scribed for Irene Oreilly PA-C, by Clint Harry medical secretary receptionist, on 10/06/2023 at 1:15 PM MILA. Irene Alvarez PA-C, have personally reviewed and agree with the information entered by the scribe. Coding Level of Care Code New Pt Level 3 (99909) Diagnoses Sprain of anterior talofibular ligament of left ankle, initial encounter S93.492A Encounter type: initial encounter Involved ligament of ankle: anterior talofibular ligament
[2023-10-06 12:47] VITALS: BMI 24.7
== END 2023-10-06 13:25 | disposition home or self-care (01) ==
PROVIDERS: PCP Internal Medicine; Visit Provider Physician Assistant
DX: S93.492A Sprain of other ligament of left ankle, initial encounter (principal)
CPT/HCPCS: 99203

== ENCOUNTER → 2023-10-06 12:27 | Outpatient (BNVA) | payer OTHER, SELFPAY | PROVIDERS: PCP Internal Medicine; Visit Provider Physician Assistant | DX: S93.492A Sprain of other ligament of left ankle, initial encounter (principal); X50.1XXA Overexertion from prolonged static or awkward postures, initial encounter; Y93.01 Activity, walking, marching and hiking; Y92.9 Unspecified place or not applicable; Y99.9 Unspecified external cause status | CPT/HCPCS: 99202 ==

== ENCOUNTER 2023-10-18 12:49 | Outpatient (AMB) | payer OTHER, SELFPAY ==
[2023-10-18 12:55] VITALS: BP 120/75; PULSE 85; BMI 24.1
--- NOTE | 2023-10-18 12:55 | A.OFFVIS_ITS ---
Intake Vital Signs 10/18/23 12:55 Height 5 ft 9 in Weight 163 lb BMI 24.1 BP 120/75 Blood Pressure Location Rt brachial Position Sitting Pulse 85 Intake Visit Reasons: Umbilical hernia without obstruction or gangrene Intake Note: This patient presents for an assessment for an Umbilical hernia without obstruction or gangrene. Patient c/o; Onset umbilical region and bilateral inguinal hernia, reports bulges. 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 Accompanied by: Self / Same As Patient Allergies Influenza Virus Vaccines Allergy (Unknown, Verified 10/18/23 13:04) gets sick everytime he gets injection colesevelam [WelChol] Adverse Reaction (Intermediate, Verified 10/18/23 13:04) nausea and vomiting Medication List - Last Reconciled 10/18/23 by Anand Turk MD albuterol sulfate 90 mcg/actuation 2 puffs inhalation Q6H PRN 30 days atorvastatin 20 mg PO DAILY fenofibrate nanocrystallized 145 mg PO DAILY fluticasone propionate 50 mcg/actuation 1 spray intranasal DAILY folic acid 1 mg PO DAILY 30 days ibuprofen 600 mg PO TID PRN ibuprofen 800 mg PO Q8H PRN 30 days ipratropium-albuterol 0.5 mg-3 mg(2.5 mg base)/3 mL 3 mL inhalation QID PRN nebulizers As directed omeprazole 40 mg PO DAILY tiotropium bromide 2.5 mcg/actuation (Spiriva Respimat) 2 puffs inhalation DAILY 30 days vitamin B complex 1 cap PO DAILY HPI Umbilical hernia without obstruction or gangrene HPI Details 58-year-old male here for follow-up for an umbilical hernia and sentinel inguinal hernias. I would seen him last August, for this. He had been scheduled to have repair of the umbilical hernia and the bilateral inguinal hernias at that time but because of the pandemic, this was canceled. He says he is ready to reschedule this. He describes the hernias to be reducible although with discomfort. He had a history of a right inguinal hernia repair with Dr. Parks in 2003 this had recurred the year after the repair. He had noticed the left groin hernia about 5 years ago. He had noticed the umbilical mass about 4 years ago. He has a known smoker and smokes about a pack a day. [facility] Medical History (Updated 10/18/23 @ 13:31 by Anand Turk MD) Right inguinal hernia Colon cancer screening Overweight (BMI 25.0-29.9) Annual physical exam Right lumbar pain Smoker GERD without esophagitis Tobacco use disorder Alcohol use disorder Rheumatoid arthritis Impaired fasting glucose COPD (chronic obstructive pulmonary disease) Benign essential hypertension Mixed hyperlipidemia Surgical History History of nephrolithiasis History of inguinal hernia repair Family History Father Hypertension Mother Hypertension Social History Alcohol intake: former Patient Tobacco Use Status: Current everyday Tobacco user Tobacco use type: Cigarette Cigarettes Per Day: 15 e-Cigarette/Vaping Use: Never Used Current occupational status: unemployed Cognitive needs: No Hearing needs: No Vision needs: Yes (glasses) Review of Systems Const Denies chills and Denies fever(s) Card Denies chest pain, Denies dyspnea and Denies dyspnea on exertion Resp Denies cough, Denies dyspnea and Denies dyspnea on exertion GI Denies hematochezia and Denies change in bowel habits Denies hematuria and Denies difficulty urinating Musc Denies back pain and Denies limited range of motion Neuro Denies focal weakness and Denies convulsions Psych Denies depression and Denies mood swings Physical Exam Vital Signs: Last Vital Signs Pulse 85 10/18/23 12:55 BP 120/75 10/18/23 12:55 BMI result Body Mass Index 24.1 Const General: comfortable and no acute distress Orientation/consciousness: patient oriented x3 Neck Neck: Yes no lymphadenopathy Resp Auscultation: clear to auscultation bilaterally Cardio Rhythm: regular rhythm GI Other: Umbilical hernia, reducible, about 2.5 cm; bilateral inguinal hernias, red ucible, more pronounced with Valsalva maneuvers Palpation (GI): Soft to palpation, nontender and no guarding Neuro General: patient oriented x3 Assessment & Plan Assessment & Plan (1) Umbilical hernia: Code(s): K42.9 - Umbilical hernia without obstruction or gangrene Qualifiers: Obstruction and gangrene presence: without obstruction or gangrene Qualified Code(s): K42.9 - Umbilical hernia without obstruction or gangrene Plan: He has an umbilical hernia, about 2.5 cm. This was partially reducible. He wants this repaired. I explained to him the technique of repair of this umbilical hernia with possible mesh placement. I discussed the risks including but not limited to bleeding, infections, bowel injury, recurrence, as well as the benefits and alternatives. He also has bilateral inguinal hernias and he wants this repaired as well. I had explained to the technique of repair with mesh. I reviewed the risks of this procedure including bleeding, infections, injury to bowel and the vas deferens and the testicle, recurrence, postop pain. He has given consent as well. (2) Left inguinal hernia: Code(s): K40.90 - Unilateral inguinal hernia, without obstruction or gangrene, not specified as recurrent Plan: He wants to proceed with repair of the left inguinal hernia as described above. (3) Right inguinal hernia: Code(s): K40.90 - Unilateral inguinal hernia, without obstruction or gangrene, not specified as recurrent Plan: He wants to proceed with repair of the right inguinal hernia as described above. Coding Level of Care Code Est Pt Level 4 (24667) Diagnoses Umbilical hernia without obstruction and without gangrene K42.9 Obstruction and gangrene presence: without obstruction or gangrene Left inguinal hernia K40.90 Right inguinal hernia K40.90
== END 2023-10-18 13:31 | disposition home or self-care (01) ==
PROVIDERS: PCP Internal Medicine; Visit Provider Surgery
DX: K42.9 Umbilical hernia without obstruction or gangrene (principal); K40.90 Unilateral inguinal hernia, without obstruction or gangrene, not specified as recurrent
CPT/HCPCS: 99214

== ENCOUNTER → 2023-10-18 12:49 | Outpatient (BNVA) | payer OTHER, SELFPAY | PROVIDERS: PCP Internal Medicine; Visit Provider Surgery | DX: K42.9 Umbilical hernia without obstruction or gangrene (principal); K40.20 Bilateral inguinal hernia, without obstruction or gangrene, not specified as recurrent; F17.210 Nicotine dependence, cigarettes, uncomplicated | CPT/HCPCS: 99212 ==

== ENCOUNTER 2023-11-24 09:28 | Outpatient (REF) | payer OTHER, SELFPAY ==
--- NOTE | 2023-11-24 13:11 | MHC.AU.MED ---
Medical Clearance for Hearing Instrumentation Date: 11/24/23 Patient Name: Dennys Guzman Date of : 1965 Primary Care Provider: Referring Provider: Celestino Burr MD We have seen your patient on 11/24/23 and have determined that they are a candidate for amplification (See accompanying report). Specifically, they would benefit from: Hearing aid use in both ears There is a statute that addresses Medical Evaluation Requirements prior to fitting a patient with a hearing aid. According to [place] statute 265 CMR:6.03(1), (a) General. Except as provided in 265 CMR 6.03(1)(b), a precision lens centerer and edger shall not sell a hearing aid unless the prospective user has presented to the precision lens centerer and edger a written statement signed by a licensed physician that states that the patient's hearing loss has been medically evaluated and the patient may be considered a candidate for a hearing aid. The medical evaluation must have taken place within the preceding six months. Please note: Due to the [place] Statute referenced above, we cannot accept a signature other than that of a licensed physician. DESKTOP TECHNICIAN and PA signatures cannot be accepted. I am in agreement with the above recommendation. There is no medical contraindication for hearing instrumentation. Physician Signature Date Physician Name (Printed)
== END 2023-11-24 09:29 | disposition home or self-care (01) ==
LOC: HO.SH 09:28
PROVIDERS: Visit Provider Internal Medicine
DX: Z01.118 Encounter for examination of ears and hearing with other abnormal findings (principal); Z46.1 Encounter for fitting and adjustment of hearing aid; H90.3 Sensorineural hearing loss, bilateral
CPT/HCPCS: 92557; 92591

== ENCOUNTER 2023-11-28 07:11 | Day surgery (SDC) | payer OTHER, SELFPAY ==
[2023-11-24 12:47] VITALS: BMI 24.1
[2023-11-28] VITALS (7 sets, daily range): BP systolic 130–169; BP diastolic 77–95; PULSE 58–89; RESP 11–16; TEMP 36.7–36.9; O2SAT 96–100; BMI 24.3
[2023-11-28] MEDS: Lactated Ringers 1,000 ML 100 ML IVCONT (08:16)
--- NOTE | 2023-11-28 08:42 | MHC.SHP ---
Pre-Procedural Eval Section A - 24 Hr Update-Section A only Date of Service: 11/28/23 Section B - Complete if H&P > 30 days Chief Complaint: Umbilical hernia w/o obst.or gangrene,inguinal her Details of Present Illness: Has reducible hernias on the umbilicus, and left and right groin Relevant Family History (Specify if Yes): No Relevant Social History: None Present Medications: see Short Stay Collaborative assessment Medical History: Significant History (GERD, hearing impairment, smoker, rheumatoid arthritis, history of alcohol use) History of Previous Operations: No relevant previous surgery Allergies: Allergies Allergy/AdvReac Type Severity Reaction Status Date / Time Influenza Virus Vaccines Allergy Unknown gets sick Verified 10/18/23 13:04 everytime he gets injection colesevelam [WelChol] AdvReac Intermediate nausea and Verified 10/18/23 13:04 vomiting Review of Systems Sugical H&P ROS: Negative: Constitution, Cardiovascular, Respiratory, Neurological, Psychiatric, Hem-Onc, Allergic/Immunologic, Gastrointestinal, Genitourinary, Musculoskeletal, Integumentary, Endocrine and Eyes/Ears/Nose/Throat Exam Surgical H&P Exam: Normal: HEENT, Normal: Heart, Normal: Lungs, Normal: Extremities, Normal: Skin and Normal: Neurological and Significant Findings: Abdomen Exam Comment: Umbilical hernia and bilateral inguinal hernias Plan Diagnosis/Plan: Unchanged I have reviewed the history and physical and performed a pertinent physical examination on my patient. No changes have occurred unless specified. Time Spent With Patient Time: Total time managing care of this patient today ____ minutes.
--- NOTE | 2023-11-28 09:00 | HO.ANESPROP2 ---
Documented by User: Nisreen Lockett NP 11/24/23 14:21 HPI - Anesthesia Eval Consult details Narrative: 58yo M for Hernia Umbilical Reducible with mesh, LEFT Hernia Inguinal Reducible with mesh,RIGHT Hernia Inguinal RECURRENT Reducible with mesh PMFSH Active Problems Active Problems: All Active Problems Right inguinal hernia (Acute) Hearing impairment (Acute) Left ankle sprain (Acute) Umbilical hernia (Acute) Left inguinal hernia (Acute) Exertional dyspnea (Acute) Vision impairment (Acute) GERD without esophagitis (Acute) Alcohol use disorder (Acute) Tobacco use disorder (Acute) Rheumatoid arthritis (Acute) Impaired fasting glucose (Acute) COPD (chronic obstructive pulmonary disease) (Acute) Benign essential hypertension (Acute) Mixed hyperlipidemia (Acute) Past Medical History Medical History (Updated 10/18/23 @ 13:31 by Anand Turk MD) Right inguinal hernia Colon cancer screening Overweight (BMI 25.0-29.9) Annual physical exam Right lumbar pain Smoker GERD without esophagitis Tobacco use disorder Alcohol use disorder Rheumatoid arthritis Impaired fasting glucose COPD (chronic obstructive pulmonary disease) Benign essential hypertension Mixed hyperlipidemia Family History Family History Father Hypertension Mother Hypertension Surgical History Surgical History (Updated 11/28/23 @ 07:54 by Keren Segovia RN) H/O eye surgery History of nephrolithiasis History of inguinal hernia repair Social History Social History Alcohol intake: former Patient Tobacco Use Status: Current everyday Tobacco user Tobacco use type: Cigarette Cigarettes Per Day: 20 e-Cigarette/Vaping Use: Never Used Use of substances other than those prescribed or required for medical reasons: Yes Are you DNR?: No Advance Directives: No Advance Directives Information Provided: Yes Current occupational status: unemployed Cognitive needs: No Hearing needs: No Vision needs: Yes (glasses) Meds Allergies Allergy/AdvReac Type Severity Reaction Status Date / Time Influenza Virus Vaccines Allergy Unknown gets sick Verified 10/18/23 13:04 everytime he gets injection colesevelam [WelChol] AdvReac Intermediate nausea and Verified 10/18/23 13:04 vomiting Home Medications ?Medication ?Instructions ?Recorded ?Confirmed ?Last Taken ?Type vitamin B complex 1 cap PO DAILY 05/19/20 10/18/23 Unknown History Exam Height,Weight and Vital Signs: Height 5 ft 9 in Weight 73.936 kg Pertinent Lab Results Pertinent Lab Results: Laboratory Tests 10/02/23 09:57 WBC 10.5 Hgb 15.1 Hct 45.0 Plt Count 297 Sodium 143 Potassium 4.3 Chloride 108 Carbon Dioxide 26 BUN 14 Creatinine 1.12 Assessment and Plan Assessment Anesthesia Assessment: Chart Reviewed Documented by User: Shadia Khoury, 11/28/23 09:04 PMFSH Past Medical History Medical History (Updated 10/18/23 @ 13:31 by Anand Turk MD) Right inguinal hernia Colon cancer screening Overweight (BMI 25.0-29.9) Annual physical exam Right lumbar pain Smoker GERD without esophagitis Tobacco use disorder Alcohol use disorder Rheumatoid arthritis Impaired fasting glucose COPD (chronic obstructive pulmonary disease) Benign essential hypertension Mixed hyperlipidemia Family History Family History Father Hypertension Mother Hypertension Family history of problems with anesthesia: No Surgical History Surgical History (Updated 11/28/23 @ 07:54 by Keren Segovia RN) H/O eye surgery History of nephrolithiasis History of inguinal hernia repair History of Problems with Anesthesia: No Social History Social History Alcohol intake: former Patient Tobacco Use Status: Current everyday Tobacco user Tobacco use type: Cigarette Cigarettes Per Day: 20 e-Cigarette/Vaping Use: Never Used Use of substances other than those prescribed or required for medical reasons: Yes Are you DNR?: No Advance Directives: No Advance Directives Information Provided: Yes Current occupational status: unemployed Cognitive needs: No Hearing needs: No Vision needs: Yes (glasses) Meds Allergies Allergy/AdvReac Type Severity Reaction Status Date / Time Influenza Virus Vaccines Allergy Unknown gets sick Verified 10/18/23 13:04 everytime he gets injection colesevelam [WelChol] AdvReac Intermediate nausea and Verified 10/18/23 13:04 vomiting Home Medications ?Medication ?Instructions ?Recorded ?Confirmed ?Last Taken ?Type vitamin B complex 1 cap PO DAILY 05/19/20 10/18/23 Unknown History Exam Exam Date and Time: November 28, 2023 0900 Height,Weight and Vital Signs: Height 5 ft 9 in Weight 73.936 kg Height 5 ft 9 in Weight 74.503 kg Vital Signs Temperature 98.1 F 11/28/23 08:10 Pulse Rate 58 11/28/23 08:10 Respiratory Rate 16 11/28/23 08:10 Blood Pressure 130/77 11/28/23 08:10 Pulse Oximetry 97 11/28/23 08:10 Oxygen Delivery Method Room Air 11/28/23 08:10 Temperature 98.1 F 11/28/23 08:10 Pulse Rate 58 11/28/23 08:10 Respiratory Rate 16 11/28/23 08:10 Blood Pressure 130/77 11/28/23 08:10 Pulse Oximetry 97 11/28/23 08:10 Oxygen Delivery Method Room Air 11/28/23 08:10 Airway Mallampati Class: II TM Dist: >3cm Neck ROM: Full Loose/Missing/Broken Teeth: Yes (poor dentition - multiple broken teeth) Heart: S1S2 Lungs: CTAB Assessment and Plan Assessment Anesthesia Assessment: Anesthesia Plan Discussed and Chart Reviewed Final Anesthetic Review Family History of Problems with Anesthesia: No History of Problems with Anesthesia: No NPO: Yes ASA Class: III Final Preanesthetic Review: No Changes in Pt Med Stat, Meds/Allgs Chart Reviewed, Consent Obtained/Reviewed and Anes Risks/Benef Reviewed Patient Risk: Low Procedure Risk: Low Anesthetic Plan Anesthetic Plan: GA and Agree w/ Assess. and Plan Disposition: Standard PACU
--- NOTE | 2023-11-28 10:37 | P.OP_ITS ---
Operative Note Operative Note Date of Service: 11/28/23 Narrative: Preop diagnosis: Bilateral inguinal hernias, recurrent on the right side, umbilical hernia Postop diagnosis: The same Procedure: Repair of bilateral inguinal hernias with mesh; repair of umbilical hernia with Ventralex mesh Surgeon: Anand Turk MD assistant store manager sales: CECILIA Leija The patient is a 58-year-old male with bilateral inguinal hernias and an umbilical hernia. He does state that the umbilical hernia on the right was recurrent and had a previous repair in the distant past He understood the technique of repair with mesh and was aware of the risks, benefits, and alternatives. He was brought to the operating room and placed supine under general anesthesia via laryngeal mask airway. The abdomen all the way down to groin was prepped and draped in the usual sterile fashion. A surgical time-out was done. The patient received cefazolin 2 g IV preoperatively I made a short incision on the skin on the left inguinal area along an imaginary line from the anterior superior iliac spine to the pubic ramus using a blade 15 after infiltration with lidocaine 1%. This was carried down through the full- thickness of the skin and subcutaneous fat down to the external oblique aponeurosis. I define the external ring. I opened up the external ring by making incision on the aponeurosis using blade 15. This extended to connect with the external ring. I applied hemostasis of the divided edges of the aponeurosis. I bluntly dissected underside of the aponeurosis to create space for the mesh. The hernia was seen. I gently dissected the spermatic cord and its contents including the hernia using my index finger until was able to pass a Munising drain for retraction. The identified the vas deferens and the accompanying vessels. These were protected during the dissection. I gently the hernia sac off of the rest of the cord contents until this was reduced through the internal ring. I reinforced the internal ring with a medium-sized plug. The plug was secured with Prolene 2 sutures to the shelving edge of the inguinal ligament laterally in the internal oblique superiorly and medially. I reinforced the floor of the canal with a keyhole mesh. The tails of the mesh were passed around the cord at the level of the internal ring and were secured together with Prolene 2 sutures. I flattened the mesh. I secured the mesh to the shelving edge of the inguinal laterally, the pubic ramus inferomedially and the internal oblique superiorly medially using Prolene 2 sutures. We observed for hemostasis. Once hemostasis was confirmed, I irrigated. We removed the Mk drain and closed the external oblique aponeurosis were running Polysorb 2-0 stitch to re-create the internal ring We then proceeded to do the repair of the left inguinal hernia. Again this area was infiltrated lidocaine 1%. I made a short incision using blade 15 on the skin in a similar fashion as on the contralateral side. This incision was deepened through the full-thickness of the skin and subcutaneous fat. We immediately noted the old repair of this hernia including the mesh. I divided the mesh in the external oblique aponeurosis to enter the canal. I examined the spermatic cord identified the vas deferens and the accompanying vessels. There was no sac within the cord and it appeared that the sac was in the internal ring. I therefore reinforced the internal ring with a small-sized plug. The plug was secured with Prolene 2 sutures using the inguinal ligament and the internal oblique aponeurosis with the inner leaves of the plug. This was a very small hernias so I decided to just reinforced this with the same old mesh and not put a new flat mesh on the area. I re apposed the divided edges of the old mesh along with the external oblique aponeurosis and recreated the external ring. We then proceeded with repair of the umbilical hernia. I made a linear transverse supra umbilical incision with a blade 15. And this was carried down through the full-thickness of the skin and subcutaneous fat. We proceeded to dissect the umbilicus off of the he was fat until were able to visualize the hernia contents. This was all omental fat. We sharply dissected the hernia off of the rest of the subcutaneous layer until I was able to reduce this with the defect. I define the umbilical defect by dividing the rest of the adhesions of the hernia. The umbilical defect was about 1 cm in diameter. I reinforced this with a small-sized Ventralex mesh. We flattened the mesh under the fascia. I secured the Prolene straps of the mesh to the fascial edge using drain 2 sutures on both sides and the straps flush on the fascial level. We then closed the fascial defect with a [id number] Maxon 1 stitch The subcutaneous layer was reapposed with Polysorb 3-0 interrupted sutures. Skin closure was achieved with Polysorb 4-0 subcuticular running sutures as well. We closed the subcutaneous layer on both the left and the right inguinal hernia repair sites with Polysorb 3-0 sutures. We closed the skin on both sides as well with Polysorb 4-0 subcuticular running sutures All incisions were infiltrated with Marcaine 0.5% for postop analgesia Dressings were applied and the procedure was completed The patient tolerated procedure well. There were no immediate complications. Initial and final counts of sponges and instruments were correct. Estimated blood loss was about 25 cc The patient was extubated without difficulty and transferred to the recovery room with stable vital signs.
[2023-11-28] MEDS: oxyCODONE HCl Immed Release 5 MG TABLET 10 MG PO (11:26)
== END 2023-11-28 12:33 | disposition home or self-care (01) ==
PROVIDERS: PCP Internal Medicine; Visit Provider Surgery
PROC: (CPT 49520; principal; 2023-11-28 09:00)
PROC: (CPT 49520; 2023-11-28 09:00)
DX: K40.91 Unilateral inguinal hernia, without obstruction or gangrene, recurrent (principal); K40.90 Unilateral inguinal hernia, without obstruction or gangrene, not specified as recurrent; K42.9 Umbilical hernia without obstruction or gangrene; K21.9 Gastro-esophageal reflux disease without esophagitis; M06.9 Rheumatoid arthritis, unspecified; I10 Essential (primary) hypertension; E78.5 Hyperlipidemia, unspecified; R73.01 Impaired fasting glucose; J44.9 Chronic obstructive pulmonary disease, unspecified; Z79.51 Long term (current) use of inhaled steroids; Z79.1 Long term (current) use of non-steroidal anti-inflammatories (NSAID); Z79.899 Other long term (current) drug therapy; Z88.8 Allergy status to other drugs, medicaments and biological substances; Z88.7 Allergy status to serum and vaccine; Z98.890 Other specified postprocedural states; Z87.442 Personal history of urinary calculi; F17.210 Nicotine dependence, cigarettes, uncomplicated; Z56.0 Unemployment, unspecified
CPT/HCPCS: 49520; 49505; 49591; C1781; J0131; J0690; J1100; J1170; J1885; J2405; J2704; J2795; J3010

== ENCOUNTER → 2023-11-28 07:11 | Outpatient (BNV) | payer OTHER, SELFPAY | PROVIDERS: PCP Internal Medicine; Visit Provider Surgery | DX: K40.20 Bilateral inguinal hernia, without obstruction or gangrene, not specified as recurrent (principal) | CPT/HCPCS: 49505 ==

== ENCOUNTER 2023-12-11 10:44 | Outpatient (AMB) | payer OTHER, SELFPAY ==
--- NOTE | 2023-12-11 10:49 | MHC.OFFVIS ---
Vital Signs 12/11/23 10:57 Height 5 ft 9 in Weight 162 lb 2 oz BMI 23.9 BP 114/76 Blood Pressure Location Lt brachial Position Sitting Pulse 82 Intake Visit Reasons: S/P umbilical hernia, bilat. Inguinal hernias Intake Note: Patient is seen in office for post op assessment post bilateral and umbilical hernia repairs. Pt c/o: denies any concerns Licensed Funeral Director Required: No Accompanied by: Self / Same As Patient Allergies Influenza Virus Vaccines Allergy (Unknown, Verified 12/11/23 10:50) gets sick everytime he gets injection colesevelam [WelChol] Adverse Reaction (Intermediate, Verified 12/11/23 10:50) nausea and vomiting HPI HPI S/P umbilical hernia, bilat. Inguinal hernias: Details: He underwent repair of bilateral inguinal hernias and an umbilical hernia last 11/28/2023. He tolerated the procedure well. He currently denies significant complaints. [facility] Medical History Right inguinal hernia Colon cancer screening Overweight (BMI 25.0-29.9) Annual physical exam Right lumbar pain Smoker GERD without esophagitis Tobacco use disorder Alcohol use disorder Rheumatoid arthritis Impaired fasting glucose COPD (chronic obstructive pulmonary disease) Benign essential hypertension Mixed hyperlipidemia Surgical History (Updated 12/11/23 @ 10:56 by STEPHON Sanchez) Hx of umbilical hernia repair (11/28/23) Hx of bilateral inguinal hernia repair (11/28/23) H/O eye surgery History of nephrolithiasis History of inguinal hernia repair Family History Father Hypertension Mother Hypertension Social History Alcohol intake: former Comment: medicated with oxycodone Patient Tobacco Use Status: Current everyday Tobacco user Tobacco use type: Cigarette Cigarettes Per Day: 20 e-Cigarette/Vaping Use: Never Used Current occupational status: unemployed Cognitive needs: No Hearing needs: No Vision needs: Yes (glasses) Review of Systems Const Denies chills and Denies fever(s) Card Denies chest pain, Denies dyspnea and Denies dyspnea on exertion Resp Denies cough, Denies dyspnea and Denies dyspnea on exertion GI Denies hematochezia and Denies change in bowel habits Denies hematuria and Denies difficulty urinating Musc Denies back pain and Denies limited range of motion Neuro Denies focal weakness and Denies convulsions Psych Denies depression and Denies mood swings Physical Exam Const General: comfortable and no acute distress GI Other: Umbilical incision and both inguinal incisions are well healed, not infected, all repair sites appear to be intact Assessment & Plan Assessment & Plan (1) Umbilical hernia: Code(s): K42.9 - Umbilical hernia without obstruction or gangrene Category: Medical Qualifiers: Obstruction and gangrene presence: without obstruction or gangrene Qualified Code(s): K42.9 - Umbilical hernia without obstruction or gangrene Plan: Status post repair of an umbilical hernia with mesh and bilateral inguinal hernias with mesh. He is doing very well. All incisions are well healed. The repair sites are intact. He was advised to avoid lifting anything more than 20 lb for another month. He can otherwise follow up on a p.r.n. basis. (2) Right inguinal hernia: Code(s): K40.90 - Unilateral inguinal hernia, without obstruction or gangrene, not specified as recurrent Category: Medical Plan: He is doing well postop. The incision is well healed. (3) Left inguinal hernia: Code(s): K40.90 - Unilateral inguinal hernia, without obstruction or gangrene, not specified as recurrent Category: Medical Plan: He is doing well postop. The incision is well healed. Coding Level of Care Code Global (39334) Diagnoses Umbilical hernia without obstruction and without gangrene K42.9 Obstruction and gangrene presence: without obstruction or gangrene Right inguinal hernia K40.90 Left inguinal hernia K40.90
[2023-12-11 10:57] VITALS: BP 114/76; PULSE 82; BMI 23.9
== END 2023-12-11 10:57 | disposition home or self-care (01) ==
PROVIDERS: PCP Internal Medicine; Visit Provider Surgery
DX: K42.9 Umbilical hernia without obstruction or gangrene (principal); K40.90 Unilateral inguinal hernia, without obstruction or gangrene, not specified as recurrent
CPT/HCPCS: 99024

== ENCOUNTER → 2023-12-11 10:44 | Outpatient (BNVA) | payer OTHER, SELFPAY | PROVIDERS: PCP Internal Medicine; Visit Provider Surgery | DX: K42.9 Umbilical hernia without obstruction or gangrene (principal); K40.90 Unilateral inguinal hernia, without obstruction or gangrene, not specified as recurrent | CPT/HCPCS: 99212 ==

== ENCOUNTER 2023-12-13 14:50 | Outpatient (REF) | payer OTHER, SELFPAY | END 2023-12-13 14:51 | disposition home or self-care (01) | LOC: HO.HAP 14:50 | PROVIDERS: Visit Provider Internal Medicine | DX: Z46.1 Encounter for fitting and adjustment of hearing aid (principal); H90.3 Sensorineural hearing loss, bilateral | CPT/HCPCS: V5011; V5020; V5160; V5261 ==

== ENCOUNTER 2023-12-15 10:56 | Outpatient (REF) | payer OTHER, SELFPAY | END 2023-12-15 10:57 | disposition home or self-care (01) | LOC: HO.HAP 10:56 | PROVIDERS: Visit Provider Internal Medicine | DX: Z13.89 Encounter for screening for other disorder (principal) ==

== ENCOUNTER 2024-01-03 11:23 | Outpatient (REF) | payer OTHER, SELFPAY | END 2024-01-03 11:24 | disposition home or self-care (01) | LOC: HO.HAP 11:23 | PROVIDERS: Visit Provider Internal Medicine | DX: Z13.89 Encounter for screening for other disorder (principal) ==

== ENCOUNTER 2024-02-05 10:23 | Outpatient (REF) | payer OTHER, SELFPAY ==
[2024-02-05 10:37] LABS: MANUAL DIFF FLAG NO
[2024-02-05 11:41] LABS: Basophils Absolute Auto 0.1 X10*3/uL (0.0-0.2); Basophils Percent Auto 0.9 % (0-2); Eosinophils Absolute Auto 0.1 X10*3/uL (0.0-0.4); Eosinophils Percent Auto 1.5 % (0-4); Hematocrit 44.1 % (42.0-52.0); Hemoglobin 15.3 g/dl (14.0-18.0); Imm Gran Abs Auto 0.03 X10*3/uL (0.00-0.03); Imm Gran Pct Auto 0.4 % (0.0-0.4); Lymphocytes Absolute Auto 2.1 X10*3/uL (1.2-4.9); Lymphocytes Percent Auto 26.2 % (20-40); Mean Corpuscular HGB Conc 34.7 g/dl (31.0-36.0); Mean Corpuscular Hemoglobin 30.7 pg (27.0-33.0); Mean Corpuscular Volume 88.6 fL (80.0-98.0); Mean Platelet Volume 9.2 fL (9.4-12.4); Monocytes Absolute Auto 0.6 X10*3/uL (0.1-1.2); Monocytes Percent Auto 7.5 % (2-11); Neutrophils Absolute Auto 5.2 x10*3/uL (2.0-8.3); Neutrophils Percent Auto 63.5 % (45-73); Platelet Count 312 X10*3/uL (160-400); Red Blood Count 4.98 X10*6/uL (4.60-5.80); Red Cell Distribution Width 13.2 % (11.0-16.0); White Blood Count 8.1 X10*3/uL (4.8-10.8)
[2024-02-05 12:31] LABS: Alanine Aminotransferase 12 U/L (0-40); Albumin Level 4.6 g/dL (3.5-5.0); Alkaline Phosphatase 61 U/L (39-117); Anion Gap 17 (12-20); Aspartate Amino Transferase 16 U/L (5-37); Bilirubin Total 0.4 mg/dL (0.0-1.0); Blood Urea Nitrogen 9 mg/dL (9-16); Calcium 9.5 mg/dL (8.4-10.2); Carbon Dioxide 23 mmol/L (22-29); Chloride 105 mmol/L (96-108); Cholesterol 175 mg/dL (<200); Estimated Glomerular Filt Rate > 60; Glucose Fasting 93 mg/dL (60-99); HDL Cholesterol 38 mg/dL (>40); LDL Cholesterol Calculated 114 mg/dL (<100); Potassium 3.2 mmol/L (3.3-5.1); Sodium 142 mmol/L (135-145); Total Protein 7.1 g/dL (6.5-8.0); Triglycerides 118 mg/dL (<150)
[2024-02-05 12:37] LABS: TSH reflex Free T4 0.91 uIU/mL (0.32-4.0)
== END 2024-02-05 10:24 | disposition home or self-care (01) ==
LOC: HO.LAB 10:23
PROVIDERS: PCP Internal Medicine; Visit Provider Internal Medicine
DX: E78.00 Pure hypercholesterolemia, unspecified (principal); D64.9 Anemia, unspecified
CPT/HCPCS: 36415; 80053; 80061; 84443; 85025

== ENCOUNTER 2024-02-05 12:52 | Outpatient (AMB) | payer OTHER, SELFPAY ==
--- NOTE | 2024-02-05 12:54 | A.OFFPC_ITS ---
Vital Signs 02/05/24 12:57 Height 5 ft 9 in Weight 162 lb 2 oz BMI 23.9 BP 110/58 L Blood Pressure Location Lt brachial Position Sitting Pulse 49 L Pulse Source Pulse Oximeter Pulse Oximetry (%) 97 Oxygen Delivery Method Room Air Intake Visit Reasons: 4 month f/u Intake Note: Patient is here to follow up on GERD, RA, COPD, HTN. 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 per policy Accompanied by: Self / Same As Patient Allergies Influenza Virus Vaccines Allergy (Unknown, Verified 02/05/24 13:23) gets sick everytime he gets injection colesevelam [WelChol] Adverse Reaction (Intermediate, Verified 02/05/24 13:23) nausea and vomiting Medication List - Last Reconciled 02/05/24 by Celestino Burr MD albuterol sulfate 90 mcg/actuation 2 puffs inhalation Q6H PRN 30 days atorvastatin 20 mg PO DAILY fenofibrate nanocrystallized 145 mg PO DAILY fluticasone propionate 50 mcg/actuation 1 spray intranasal DAILY 90 days folic acid 1 mg PO DAILY 30 days ibuprofen 600 mg PO TID PRN ipratropium-albuterol 0.5 mg-3 mg(2.5 mg base)/3 mL 3 mL inhalation QID PRN nebulizers As directed omeprazole 40 mg PO DAILY oxycodone-acetaminophen 5-325 mg (Percocet) 1 tab PO Q4-6H PRN tiotropium bromide 2.5 mcg/actuation (Spiriva Respimat) 2 puffs inhalation DAILY 30 days vitamin B complex 1 cap PO DAILY 90 days Tobacco use date assessed: 02/05/24 Dental Screening Dental Screen Date: 10/02/23 HPI 4 month f/u HPI Details Patient comes in today for his follow up visit States that he feels okay He denies any headaches or dizziness Notes that he has recurrent hoarseness of his voice that seems especially more pronounced towards the end of the day He denies any sore throat or any recent recurrent cough/cold symptoms; denies any trouble swallowing Denies any chest pains, no SOB No nausea/vomiting, no abdominal pain No change in bowel habits noted Needs his Folic Acid Rx refilled He had his follow up labs done earlier this morning - to discuss his results [facility] Medical History (Updated 02/12/24 @ 02:54 by Celestino Burr MD) Colon cancer screening Right inguinal hernia Overweight (BMI 25.0-29.9) Annual physical exam Right lumbar pain Smoker GERD without esophagitis Tobacco use disorder Alcohol use disorder Rheumatoid arthritis Impaired fasting glucose COPD (chronic obstructive pulmonary disease) Benign essential hypertension Mixed hyperlipidemia Surgical History Hx of umbilical hernia repair (11/28/23) Hx of bilateral inguinal hernia repair (11/28/23) H/O eye surgery History of nephrolithiasis History of inguinal hernia repair Family History Father Hypertension Mother Hypertension Other Substance use disorder Social History Housing: House Alcohol intake: former Comment: medicated with oxycodone Patient Tobacco Use Status: Current everyday Tobacco user Tobacco use type: Cigarette Cigarette Packs Per Day: 1 Cigarettes Per Day: 20 e-Cigarette/Vaping Use: Never Used Second Hand Smoke Exposure: Yes service: No Current occupational status: unemployed Cognitive needs: No Hearing needs: No Vision needs: Yes (glasses) Questionnaire Thrive Questionnaire Date Thrive assessed: 10/02/23 KRISTY-7 AMB Questionnaire KRISTY-7 Date KRISTY - 7 assessed: 10/02/23 Source: Developed by Drs. Shine Major, Mary Ngo, Etinene Park and colleagues, with an educational carrington from [facility]. Review of Systems Const Denies chills, Denies fatigue, Denies fever(s) and Denies headache(s) ENT Denies dysphagia, Denies dizziness, Denies otalgia, Denies headache(s), Reports hoarseness (recurrent; worse towards the end of the day), Denies neck pain, Denies odynophagia and Denies sore throat Card Denies chest pain, Denies palpitations and Denies dyspnea Resp Denies cough and Denies dyspnea GI Denies abdominal pain, Denies constipation, Denies dysphagia, Denies heartburn, Denies diarrhea, Denies nausea, Denies odynophagia and Denies vomiting Denies dysuria, Denies nocturia and Denies urinary frequency Musc Denies back pain and Denies neck pain Skin/Breast Denies rash Neuro Denies dizziness and Denies headache(s) Psych Denies anxiety Endo Denies fatigue and Denies palpitations Physical exam (Primary Care) Vital Signs: Last Vital Signs Pulse 49 L 02/05/24 12:57 BP 110/58 L 02/05/24 12:57 Pulse Ox 97 02/05/24 12:57 Oxygen Delivery Method Room Air 02/05/24 12:57 BMI result Body Mass Index 23.9 Tobacco/Smoking Status: Tobacco use Status Tobacco use date assessed 02/05/24 02/05/24 13:02 Patient Tobacco Use Status Current everyday Tobacco 02/05/24 13:02 Tobacco use type Cigarette 02/05/24 13:02 e-Cigarette/Vaping Use Never Used 02/05/24 13:02 Thrive Assessment: Date of Thrive Assessment Date Thrive assessed 10/02/23 02/05/24 13:02 Const General: no acute distress and alert HENMT Ears: TM's normal bilaterally and EAC's normal Throat: Yes posterior oropharynx normal and Yes tonsils normal (no TP congestion) Neck Neck: Yes no lymphadenopathy and Yes supple Thyroid: Thyroid normal Resp Auscultation: no crackles, no rales, no wheezes and diminished lung sounds bilateral Cardio Rate: regular rate Rhythm: regular rhythm Heart sounds: no murmurs GI Palpation (GI): Soft to palpation and nontender Auscultation: normal bowel sounds General: Yes no CVA tenderness Back/Spine/Pelvis Back: no CVA tenderness Thoracic/Lumbar Spine: No lumbar spinal tenderness Skin Rashes: no rashes Extrem General: Yes no clubbing, cyanosis or edema Results Reviewed Results Reviewed: Laboratory Tests 02/05/24 10:36 WBC 8.1 Hgb 15.3 Hct 44.1 Plt Count 312 Sodium 142 Potassium 3.2 L D Creatinine 1.06 Estimated GFR > 60 Fasting Glucose 93 Calcium 9.5 AST 16 ALT 12 Triglycerides 118 Cholesterol 175 LDL Cholesterol, Calc 114 H HDL Cholesterol 38 L TSH 0.91 Assessment and Plan Assessment & Plan (1) Mixed hyperlipidemia: Code(s): E78.2 - Mixed hyperlipidemia Plan: Results of his labs done earlier today reviewed and discussed with patient - advised that his LDL cholesterol level has improved slightly again from his previous numbers (now at 114 mg/dl) but should ideally be at least <100 mg/dl Reinforced low cholesterol diet Continue Atorvastatin 20 mg QD and Fenofibrate 145 mg QD for now - will continue to hold off on raising his dosages as he has a Hx of significantly elevated LFTs Will recheck his labs and fasting lipids in 4 months for follow up (2) COPD (chronic obstructive pulmonary disease): Comment: PFTs done in October 2018 showed (+) mild to moderate obstructive airway disease with no reversibility Code(s): J44.9 - Chronic obstructive pulmonary disease, unspecified Qualifiers: COPD type: unspecified COPD Qualified Code(s): J44.9 - Chronic obstructive pulmonary disease, unspecified Plan: Appears stable/controlled Continue Spiriva Respimat 2.5 mcg 2 puffs QD and Albuterol HFA 1 to 2 inhalations every 6 hours as needed Patient is again encouraged to quit smoking (3) Impaired fasting glucose: Code(s): R73.01 - Impaired fasting glucose Plan: HgbA1c was at 4.9% when checked a couple of years ago; FBS is normal at 93 mg/dl on his labs earlier this morning Reinforced low calorie diet/exercise as tolerated (4) GERD without esophagitis: Code(s): K21.9 - Gastro-esophageal reflux disease without esophagitis Plan: Dietary restrictions reinforced Continue Omeprazole 40 mg QD (5) Hoarseness: Code(s): R49.0 - Dysphonia Plan: Will refer him to ENT for further evaluation and management of his recurrent hoarseness (6) Hypokalemia: Code(s): E87.6 - Hypokalemia Plan: He is advised that his serum potassium level is low on his recent labs Will start him on Klor-Con 20 renato QD (7) Alcohol use disorder: Comment: He is doing well He is alcohol free for six months however he is using oxycodone for back pain and has not received Vivitrol Plan: In remission - states that he has been sober > 4 to 5 years now He has not been on Vivitrol for a couple of years now and has not needed to see Dr. Peoples for the past few years (8) Smoker: Code(s): F17.200 - Nicotine dependence, unspecified, uncomplicated Plan: Counseled again on smoking cessation (9) Colon cancer screening: Code(s): Z12.11 - Encounter for screening for malignant neoplasm of colon Plan: Will refer him to GI for repeat screening colonoscopy Plan Follow up in 4 months Orders: Orders Complete Blood Count Auto Diff 4 Months D64.9 - Anemia, unspecified Lipid Panel 4 Months E78.00 - Pure hypercholesterolemia, unspecified TSH reflex Free T4 4 Months E78.00 - Pure hypercholesterolemia, unspecified Magnesium 4 Months E83.42 - Hypomagnesemia, E87.6 - Hypokalemia Comprehensive [place]. Panel Fast 4 Months E78.00 - Pure hypercholesterolemia, unspecified Hemoglobin A1c 4 Months R73.01 - Impaired fasting glucose UA CC w/rflx Micro + Cult 4 Months R30.0 - Dysuria Vitamin D 25-OH Total 4 Months E55.9 - Vitamin D deficiency, unspecified Referrals Gastroenterology Referral Z12.11 - Encounter for screening for malignant neoplasm of colon Ear/Nose/Throat Referral R49.0 - Dysphonia Medications: New potassium chloride ER (Klor-Con M) 20 mEq PO DAILY 90 days 90 tabs 1RF Refilled folic acid 1 mg PO DAILY 30 days 30 tabs 11RF Coding Level of Care Code Est Pt Level 4 (73215) Diagnoses Mixed hyperlipidemia E78.2 Chronic obstructive pulmonary disease, unspecified COPD type J44.9 COPD type: unspecified COPD Impaired fasting glucose R73.01 GERD without esophagitis K21.9 Hoarseness R49.0 Hypokalemia E87.6 Alcohol use disorder F10.90 Smoker F17.200 Colon cancer screening Z12.11
[2024-02-05 12:57] VITALS: BP 110/58; PULSE 49; O2SAT 97; BMI 23.9
== END 2024-02-05 13:39 | disposition home or self-care (01) ==
PROVIDERS: PCP Internal Medicine; Visit Provider Internal Medicine
DX: E78.2 Mixed hyperlipidemia (principal); J44.9 Chronic obstructive pulmonary disease, unspecified; R73.01 Impaired fasting glucose; K21.9 Gastro-esophageal reflux disease without esophagitis; R49.0 Dysphonia; E87.6 Hypokalemia; F10.90 Alcohol use, unspecified, uncomplicated; F17.200 Nicotine dependence, unspecified, uncomplicated; Z12.11 Encounter for screening for malignant neoplasm of colon
CPT/HCPCS: 99214

== ENCOUNTER 2024-02-29 12:19 | Outpatient (AMB) | payer OTHER, SELFPAY ==
--- NOTE | 2024-02-29 13:10 | AM.OFFWIN_ITS ---
Intake Vital Signs 02/29/24 13:13 Height 5 ft 9 in Weight 164 lb BMI 24.2 BP 104/60 Blood Pressure Location Rt brachial Position Sitting Pulse 60 Pulse Source Pulse Oximeter Temp 97.9 F Temp Source Temporal Artery Scan Pulse Oximetry (%) 95 Oxygen Delivery Method Room Air Intake Visit Reasons: EP- pain left side of abdomen Intake Note: pt is here for left side of abd for 2 weeks, denies any injury. had hernia surgery in November unsure if its related Patient Tobacco Use Status: Current everyday Tobacco user Allergies Influenza Virus Vaccines Allergy (Unknown, Verified 02/29/24 13:18) gets sick everytime he gets injection colesevelam [WelChol] Adverse Reaction (Intermediate, Verified 02/29/24 13:18) nausea and vomiting Do you need a note to return to daycare/school/sports/work: No HPI HPI Comments History of Present Illness Details Patient is a 58-year-old male complaining a little over a week of left lower abdominal pain. He states he was climbing on a van last week but the pain actually started a little bit before that. He denies any nausea vomiting or fe vers or history of diverticulosis. He states the pain is worse when he goes to stand up or engages his abdominal muscles, it is better when he lays down or when he sits. He did have recent hernia surgery on November 27 for an umbilical hernia and for inguinal hernias. Patient states he has never had a colonoscopy [facility] Medical History (Updated 02/29/24 @ 14:05 by Valery Weber PA-C) Colon cancer screening Right inguinal hernia Overweight (BMI 25.0-29.9) Annual physical exam Right lumbar pain Smoker GERD without esophagitis Tobacco use disorder Alcohol use disorder Rheumatoid arthritis Impaired fasting glucose COPD (chronic obstructive pulmonary disease) Benign essential hypertension Mixed hyperlipidemia Surgical History Hx of umbilical hernia repair (11/28/23) Hx of bilateral inguinal hernia repair (11/28/23) H/O eye surgery History of nephrolithiasis History of inguinal hernia repair Family History Father Hypertension Mother Hypertension Other Substance use disorder Social History Housing: House Alcohol intake: former Comment: medicated with oxycodone Patient Tobacco Use Status: Current everyday Tobacco user Tobacco use type: Cigarette Cigarette Packs Per Day: 1 Cigarettes Per Day: 20 e-Cigarette/Vaping Use: Never Used Second Hand Smoke Exposure: Yes service: No Current occupational status: unemployed Cognitive needs: No Hearing needs: No Vision needs: Yes (glasses) Review of Systems Const All systems reviewed & are unremarkable except as noted in HPI and below Physical Exam Vital Signs: Last Vital Signs Temp 97.9 F 02/29/24 13:13 Pulse 60 02/29/24 13:13 BP 104/60 02/29/24 13:13 Pulse Ox 95 02/29/24 13:13 Oxygen Delivery Method Room Air 02/29/24 13:13 BMI result Body Mass Index 24.2 Const General: cooperative, healthy appearing, comfortable, no acute distress and well developed Orientation/consciousness: patient oriented x3 Limitations: no limitations HEENT Head: Yes normal to inspection Eyes General: appearance normal, both eyes and all related structures Neck Neck: Yes normal visual inspection and Yes full ROM Resp Effort & Inspection: normal respiratory effort and able to speak in complete sentences GI Inspection: Yes normal to inspection Palpation (GI): Soft to palpation and nontender Skin General skin exam: no rashes or lesions noted Neuro General: patient oriented x3 Extrem General: Yes normal to inspection Assessment & Plan Assessment & Plan (1) Abdominal muscle strain: Code(s): S39.011A - Strain of muscle, fascia and tendon of abdomen, initial encounter Qualifiers: Encounter type: initial encounter Qualified Code(s): S39.011A - Strain of muscle, fascia and tendon of abdomen, initial encounter Plan: Recommended rest, ibuprofen if needed. Should improve in the next week or 2, if it does not improve, he should follow up with his primary care doctor. Recommended if he has any fevers or diarrhea, he should go to the emergency department. Plan See above Coding Level of Care Code Est Pt Level 3 (12864) Diagnoses Strain of abdominal muscle, initial encounter S39.011A Encounter type: initial encounter
[2024-02-29 13:13] VITALS: BP 104/60; PULSE 60; TEMP 36.6; O2SAT 95; BMI 24.2
== END 2024-02-29 15:19 | disposition home or self-care (01) ==
PROVIDERS: PCP Internal Medicine; Visit Provider Physician Assistant
DX: S39.011A Strain of muscle, fascia and tendon of abdomen, initial encounter (principal)
CPT/HCPCS: 99213

== ENCOUNTER 2024-05-03 12:49 | Outpatient (AMB) | payer OTHER, SELFPAY ==
--- NOTE | 2024-05-03 12:53 | MHC.OFFVIS ---
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 He is referred by Celestino Burr PMX Allergic rhininits Smoker Rheumatoid arthritis Alcohol use disorder COPD Hypertension High cholesterol Hearing impaired GERD Impaired fasting glucose * SURGICAL HISTORY Umbilical hernia repair Nephrolithiasis with stone removal Eye surgery Tonsillectomy * ALLERGY WELCHOL FLU VIRUS VACCINE * [place]-[facility] LABS: Laboratory Tests 02/05/24 10:36 WBC 8.1 Hgb 15.3 Hct 44.1 Plt Count 312 Estimated GFR > 60 Total Bilirubin 0.4 AST 16 ALT 12 Alkaline Phosphatase 61 TSH 0.91 TODAY'S VISIT This is his first colonoscopy No bowel or upper GI problems. NO cardiac and his COPD is well controlled. No ID problems. No anes or sed problems. No known CRC or polyps [facility] Medical History (Updated 06/05/24 @ 12:45 by Celestino Burr MD) Vitamin D deficiency Allergic rhinitis Right inguinal hernia Umbilical hernia Overweight (BMI 25.0-29.9) Smoker GERD without esophagitis Tobacco use disorder Alcohol use disorder Impaired fasting glucose COPD (chronic obstructive pulmonary disease) Benign essential hypertension Mixed hyperlipidemia Surgical History Hx of umbilical hernia repair (11/28/23) Hx of bilateral inguinal hernia repair (11/28/23) H/O eye surgery History of nephrolithiasis History of inguinal hernia repair Family History Father Hypertension Mother Hypertension Other Substance use disorder Social History Housing: House Alcohol intake: former Comment: medicated with oxycodone Patient Tobacco Use Status: Current everyday Tobacco user Tobacco use type: Cigarette Cigarette Packs Per Day: 1 Cigarettes Per Day: 20 e-Cigarette/Vaping Use: Never Used Second Hand Smoke Exposure: Yes service: No Current occupational status: unemployed Cognitive needs: No Hearing needs: No Vision needs: Yes (glasses) Review of Systems Const Denies fatigue, Denies fever(s), Denies night sweats, Denies poor appetite and Denies weight loss Eyes Details: glasses Reports requires corrective lenses ENT Denies dental pain, Denies dysphagia, Reports hearing loss, Denies mouth pain, Denies odynophagia, Denies throat swelling, Denies tongue swelling and Reports other (Dentition adequate) Card Reports no additional complaints Resp Reports no additional complaints GI Details: Denies abdominal pain, Denies melena, Denies bloating, Denies hematochezia, Denies constipation, Denies GI cramping, Denies dysphagia, Denies excessive flatus, Denies early satiety, Denies heartburn, Denies diarrhea, Denies nausea, Denies odynophagia, Denies vomiting and Denies hematemesis Skin/Breast Denies pruritus, Denies lesions, Denies rash and Denies jaundice Neuro Denies Abnormal speech present Endo Denies fatigue Aller/Immun Denies throat swelling and Denies tongue swelling Physical Exam Vital Signs: Last Vital Signs Pulse 81 05/03/24 12:54 BP 122/65 05/03/24 12:54 BMI result Body Mass Index 24.2 Const General: cooperative, no acute distress, well developed and well groomed Nutritional Appearance: average body habitus and well nourished Orientation/consciousness: oriented to person, oriented to place and oriented to time Limitations: No language barrier HEENT Head: Yes normocephalic and Yes atraumatic Eyes General: appearance normal, both eyes and all related structures Pupils: Equal, round and reactive pupils present Neck Neck: Yes normal visual inspection and Yes no lymphadenopathy Thyroid: Thyroid normal Resp Effort & Inspection: normal respiratory effort and able to speak in complete sentences Auscultation: clear to auscultation bilaterally Cardio Rate: regular rate Rhythm: regular rhythm Heart sounds: Normal, physiologic split S2 sound present Peripheral pulses: radial pulses present and posterior tibial pulses present GI Inspection: No distended and No Abdominal panniculus present Palpation (GI): Soft to palpation, nontender, no guarding, not rigid and No hepatosplenomegaly present Percussion: Yes normal to percussion Auscultation: normal bowel sounds Rectal Exam - Male: Yes deferred Skin General skin exam: no rashes or lesions noted, turgor normal, skin not dry, no jaundice, No spider nevi and no striae Rashes: no rashes Nails: normal Neuro General: oriented to person, oriented to place and oriented to time Cranial nerves: Yes Equal, round and reactive pupils present Speech: No Abnormal speech present Extrem General: Yes normal to inspection, No clubbing, No cyanosis and No edema Psych Appearance: grossly normal and well kempt Mental Status: mental status grossly normal Speech and movement: Normal speech and movement present Affect: normal affect Attitude: cooperative Thought process: Normal thought process present and not confabulating Thought content: Normal thought content present Insight: Fair insight present (Psych) Judgement: Fair judgement present (Psych) Assessment & Plan Assessment & Plan (1) Pre-op examination: Code(s): Z01.818 - Encounter for other preprocedural examination Category: Medical (2) COPD (chronic obstructive pulmonary disease): Comment: PFTs done in October 2018 showed (+) mild to moderate obstructive airway disease with no reversibility Code(s): J44.9 - Chronic obstructive pulmonary disease, unspecified Category: Medical Qualifiers: COPD type: unspecified COPD Qualified Code(s): J44.9 - Chronic obstructive pulmonary disease, unspecified (3) Alcohol use disorder: Comment: He is doing well He is alcohol free for six months however he is using oxycodone for back pain and has not received Vivitrol Category: Medical (4) Tobacco use disorder: Comment: Precontemplative Counseled to think about quitting Code(s): F17.200 - Nicotine dependence, unspecified, uncomplicated Category: Medical (5) Hearing impairment: Code(s): H91.90 - Unspecified hearing loss, unspecified ear Category: Medical Qualifiers: Hearing loss type: unspecified Laterality: unspecified laterality Qualified Code(s): H91.90 - Unspecified hearing loss, unspecified ear Plan This is his first colonoscopy No bowel or upper GI problems. NO cardiac and his COPD is well controlled. No ID problems. No anes or sed problems. No known CRC or polyps Orders: Orders Colonoscopy - GI Use Only 05/03/24 Z01.818 - Encounter for other preprocedural examination, F17.200 - Nicotine dependence, unspecified, uncomplicated, J44.9 - Chronic obstructive pulmonary disease, unspecified, H91.90 - Unspecified hearing loss, unspecified ear Medications: New sodium,potassium,mag sulfates 17.5-3.13-1.6 gram (Suprep Bowel Prep Kit) 480 mL orally; FOR COLONOSCOPY PREP 354 mL 0RF Coding Level of Care Code New Pt Level 3 (59490) Diagnoses Pre-op examination Z01.818 Chronic obstructive pulmonary disease, unspecified COPD type J44.9 COPD type: unspecified COPD Alcohol use disorder F10.90 Tobacco use disorder F17.200 Hearing loss, unspecified hearing loss type, unspecified laterality H91.90 Hearing loss type: unspecified Laterality: unspecified laterality
[2024-05-03 12:54] VITALS: BP 122/65; PULSE 81; BMI 24.2
== END 2024-05-03 13:18 | disposition home or self-care (01) ==
PROVIDERS: PCP Internal Medicine; Visit Provider Nurse Practitioner
DX: Z01.818 Encounter for other preprocedural examination (principal); Z12.11 Encounter for screening for malignant neoplasm of colon; F10.90 Alcohol use, unspecified, uncomplicated
CPT/HCPCS: 99202

== ENCOUNTER → 2024-05-03 12:49 | Outpatient (BNVA) | payer OTHER, SELFPAY | PROVIDERS: PCP Internal Medicine; Visit Provider Nurse Practitioner | DX: Z01.818 Encounter for other preprocedural examination (principal); J44.9 Chronic obstructive pulmonary disease, unspecified; F17.200 Nicotine dependence, unspecified, uncomplicated; H91.90 Unspecified hearing loss, unspecified ear | CPT/HCPCS: 99202 ==

== ENCOUNTER 2024-06-04 10:54 | Outpatient (REF) | payer OTHER, SELFPAY ==
[2024-06-04 11:11] LABS: MANUAL DIFF FLAG NO
[2024-06-04 11:57] LABS: Basophils Absolute Auto 0.1 X10*3/uL (0.0-0.2); Basophils Percent Auto 0.7 % (0-2); Eosinophils Absolute Auto 0.2 X10*3/uL (0.0-0.4); Eosinophils Percent Auto 1.9 % (0-4); Hemoglobin 15.1 g/dl (14.0-18.0); Imm Gran Abs Auto 0.05 X10*3/uL (0.00-0.03); Imm Gran Pct Auto 0.5 % (0.0-0.4); Lymphocytes Absolute Auto 2.2 X10*3/uL (1.2-4.9); Lymphocytes Percent Auto 23.7 % (20-40); Mean Corpuscular HGB Conc 34.3 g/dl (31.0-36.0); Mean Corpuscular Hemoglobin 31.3 pg (27.0-33.0); Mean Corpuscular Volume 91.3 fL (80.0-98.0); Mean Platelet Volume 9.4 fL (9.4-12.4); Monocytes Absolute Auto 0.7 X10*3/uL (0.1-1.2); Monocytes Percent Auto 7.2 % (2-11); Platelet Count 282 X10*3/uL (160-400); Red Blood Count 4.82 X10*6/uL (4.60-5.80); Red Cell Distribution Width 13.1 % (11.0-16.0); White Blood Count 9.1 X10*3/uL (4.8-10.8)
[2024-06-04 12:00] LABS: Estimated Average Glucose 100 mg/dL; Hemoglobin A1C 127.7668 umol/L; Hemoglobin A1c % 5.1 % (<6.0); Total Hemoglobin (HGBA1C) 3924.1068 umol/L
[2024-06-04 12:09] LABS: Appearance Urine Clear; Color Urine Yellow; Glucose Urine UA Negative (Negative); Leukocyte Esterase Urine Negative (Negative); Nitrite Urine Negative (Negative); PH 5.5 (5.0-9.0); Specific Gravity - Urine 1.015 (1.005-1.025); Urine Blood Negative (Negative); Urine Ketones Negative (Negative); Urine Protein Negative (Neg-Trace)
[2024-06-04 12:33] LABS: Alanine Aminotransferase 12 U/L (0-40); Albumin Level 4.3 g/dL (3.5-5.0); Alkaline Phosphatase 59 U/L (39-117); Anion Gap 13 (12-20); Aspartate Amino Transferase 18 U/L (5-37); Bilirubin Total 0.4 mg/dL (0.0-1.0); Blood Urea Nitrogen 10 mg/dL (9-16); Calcium 9.8 mg/dL (8.4-10.2); Carbon Dioxide 24 mmol/L (22-29); Chloride 108 mmol/L (96-108); Cholesterol 179 mg/dL (<200); Estimated Glomerular Filt Rate > 60; Glucose Fasting 91 mg/dL (60-99); HDL Cholesterol 38 mg/dL (>40); LDL Cholesterol Calculated 117 mg/dL (<100); Magnesium 1.7 mg/dL (1.6-2.6); Potassium 4.1 mmol/L (3.3-5.1); Sodium 141 mmol/L (135-145); Triglycerides 122 mg/dL (<150)
[2024-06-04 12:42] LABS: Vitamin D 25-OH Total 15.2 ng/mL (>30)
== END 2024-06-04 10:55 | disposition home or self-care (01) ==
LOC: HO.LAB 10:54
PROVIDERS: PCP Internal Medicine; Visit Provider Internal Medicine
DX: D64.9 Anemia, unspecified (principal); E78.00 Pure hypercholesterolemia, unspecified; E83.42 Hypomagnesemia; E87.6 Hypokalemia; R73.01 Impaired fasting glucose; R30.0 Dysuria
CPT/HCPCS: 36415; 80053; 80061; 81003; 82306; 83036; 83735; 84443; 85025

== ENCOUNTER 2024-06-05 10:32 | Outpatient (AMB) | payer OTHER, SELFPAY ==
[2024-06-05 10:35] VITALS: BP 110/68; PULSE 71; O2SAT 97; BMI 24.1
--- NOTE | 2024-06-05 10:35 | MHC.PC.OV ---
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 Required: No Accompanied by: Self / Same As Patient Allergies Influenza Virus Vaccines Allergy (Unknown, Verified 06/05/24 11:14) gets sick everytime he gets injection colesevelam [WelChol] Adverse Reaction (Intermediate, Verified 06/05/24 11:14) nausea and vomiting Medication List - Last Reconciled 06/05/24 by Celestino Burr MD albuterol sulfate 90 mcg/actuation 2 puffs inhalation Q6H PRN 30 days atorvastatin 20 mg PO DAILY fenofibrate nanocrystallized 145 mg PO DAILY fluticasone propionate 50 mcg/actuation 1 spray intranasal DAILY 90 days folic acid 1 mg PO DAILY 30 days ibuprofen 600 mg PO TID PRN ipratropium-albuterol 0.5 mg-3 mg(2.5 mg base)/3 mL 3 mL inhalation QID PRN nebulizers As directed omeprazole 40 mg PO DAILY potassium chloride ER (Klor-Con M) 20 mEq PO DAILY 90 days sodium,potassium,mag sulfates 17.5-3.13-1.6 gram (Suprep Bowel Prep Kit) 480 mL orally; FOR COLONOSCOPY PREP tiotropium bromide 2.5 mcg/actuation (Spiriva Respimat) 2 puffs inhalation DAILY vitamin B complex 1 cap PO DAILY 90 days Tobacco use date assessed: 06/05/24 Dental Screening Dental Screen Date: 06/05/24 Did you have a dental visit in the last 12 months?: Yes Did you have a dental problem in the last 6 months where you did not have access to dental care?: No Was dental information given to patient?: Patient has dentist HPI Follow Up HPI Details Patient comes in today for his follow up visit States that he feels okay He denies any headaches or dizziness Denies any chest pains, no increased SOB No nausea/vomiting, no abdominal pain No change in bowel habits noted Needs his Potassium tablets Rx refilled and would like to know if he can dose his nasal spray BID instead of just QD He had his follow up labs done yesterday - to discuss his results [facility] Medical History (Updated 06/05/24 @ 12:45 by Celestino Burr MD) Vitamin D deficiency Allergic rhinitis Right inguinal hernia Umbilical hernia Overweight (BMI 25.0-29.9) Smoker GERD without esophagitis Tobacco use disorder Alcohol use disorder Impaired fasting glucose COPD (chronic obstructive pulmonary disease) Benign essential hypertension Mixed hyperlipidemia Surgical History Hx of umbilical hernia repair (11/28/23) Hx of bilateral inguinal hernia repair (11/28/23) H/O eye surgery History of nephrolithiasis History of inguinal hernia repair Family History Father Hypertension Mother Hypertension Other Substance use disorder Social History Housing: House Alcohol intake: former Comment: medicated with oxycodone Patient Tobacco Use Status: Current everyday Tobacco user Tobacco use type: Cigarette Cigarette Packs Per Day: 1 Cigarettes Per Day: 20 e-Cigarette/Vaping Use: Never Used Second Hand Smoke Exposure: Yes service: No Current occupational status: unemployed Cognitive needs: No Hearing needs: No Vision needs: Yes (glasses) Questionnaire PHQ-9 Over the last 2 weeks, how often have you been bothered by any of the following problems? 1. Little interest or pleasure in doing things: not at all 2. Feeling down, depressed, or hopeless: not at all 3. Trouble falling or staying asleep, or sleeping too much: not at all 4. Feeling tired or having little energy: not at all 5. Poor appetite or overeating: not at all 6. Feeling bad about yourself - or that you are a failure or have let yourself or your family down: not at all 7. Trouble concentrating on things, such as reading the newspaper or watching television: not at all 8. Moving or speaking so slowly that other people could have noticed. Or the opposite - being so fidgety or restless that you have been moving around a lot more than usual: not at all 9. Thoughts that you would be better off or of hurting yourself in some way: not at all Total score: 0 Depression Screening Interpretation: Negative Depression Screening Done: Yes 90115 - PHQ-9 Billing: Yes Source: Developed by Drs. Shine Major, Etienne Currie and colleagues, with an educational carrington from [email or web address]. Thrive Questionnaire Date Thrive assessed: 06/05/24 I am a: Patient What is your living situation today?: I have a steady place to live Within the past 12 months, did the food you bought not last and you didn't have the money to get more?: Never true Within the past 12 months, did you worry whether your food would run out before you got money to buy more?: Never true Do you have trouble paying for medicines?: No Do you have trouble getting transportation to medical appointments?: No Do you have trouble paying your heating and electricity bill?: No Do you have trouble taking care of your child, family member or friend?: No Do you have trouble with day-to-day activities such as bathing, preparing meals, shopping, managing finances, etc.?: No Are you currently unemployed and looking for a job?: No Are you interested in more education?: No Please select the resources that you would like help with: None Currently or been in a relationship where the following occur: No concerns reported THRIVE Score: 0 AUDIT C Alcohol Use Questionnaire (AUDIT-C) 1. How often do you have a drink containing alcohol?: Never 3. How often do you have six or more drinks on one occasion?: Never Total Score: 0 Score Reviewed/Action Taken: Yes KRISTY-7 AMB Questionnaire KRISTY-7 Date KRISTY - 7 assessed: 06/05/24 Feeling nervous, anxious, or on edge: 0 = Not at all Not being able to stop or control worryin = Not at all Worrying too much about different things: 0 = Not at all Trouble relaxin = Not at all Being so restless that it is hard to sit still: 0 = Not at all Becoming easily annoyed or irritable: 0 = Not at all Feeling afraid as if something awful might happen: 0 = Not at all Total KRISTY-7 score (0-4 normal; 5-9 mild; 10-14 moderate; 15-21 severe): 0 Source: Developed by Mary Hussein Kurt Kroenke and colleagues, with an educational carrington from [email or web address]. Review of Systems Const Denies chills, Denies fatigue, Denies fever(s) and Denies headache(s) ENT Denies dysphagia, Denies dizziness, Denies otalgia, Denies headache(s), Denies neck pain, Denies odynophagia and Denies sore throat Card Denies chest pain, Denies palpitations and Denies dyspnea Resp Denies chest congestion, Reports cough (on and off; coughs up thick whitish phlegm at times), Denies dyspnea and Denies wheezing GI Denies abdominal pain, Denies constipation, Denies dysphagia, Denies heartburn, Denies diarrhea, Denies nausea, Denies odynophagia and Denies vomiting Denies dysuria, Denies nocturia and Denies urinary frequency Musc Denies back pain and Denies neck pain Skin/Breast Denies rash Neuro Denies dizziness and Denies headache(s) Psych Denies anxiety Endo Denies fatigue and Denies palpitations Aller/Immun Denies wheezing Physical exam (Primary Care) Vital Signs: Last Vital Signs Pulse 71 06/05/24 10:35 BP 110/68 06/05/24 10:35 Pulse Ox 97 06/05/24 10:35 Oxygen Delivery Method Room Air 06/05/24 10:35 BMI result Body Mass Index 24.1 Tobacco/Smoking Status: Tobacco use Status Tobacco use date assessed 06/05/24 06/05/24 10:37 Patient Tobacco Use Status Current everyday Tobacco 06/05/24 10:37 Tobacco use type Cigarette 06/05/24 10:37 e-Cigarette/Vaping Use Never Used 06/05/24 10:37 PHQ-9: PHQ-9 Score PHQ-9: Total score 0 06/05/24 10:55 Depression Screening Interpretation: Negative Thrive Assessment: Date of Thrive Assessment Date Thrive assessed 06/05/24 06/05/24 10:37 Currently or been in a relationship where the following occur: No concerns reported Const General: no acute distress and alert HENMT Ears: TM's normal bilaterally and EAC's normal Throat: Yes posterior oropharynx normal and Yes tonsils normal (no TP congestion) Neck Neck: Yes no lymphadenopathy and Yes supple Thyroid: Thyroid normal Resp Auscultation: no crackles, no rales, no wheezes and diminished lung sounds bilateral Cardio Rate: regular rate Rhythm: regular rhythm Heart sounds: no murmurs GI Palpation (GI): Soft to palpation and nontender Auscultation: normal bowel sounds General: Yes no CVA tenderness Back/Spine/Pelvis Back: no CVA tenderness Thoracic/Lumbar Spine: No lumbar spinal tenderness Skin Rashes: no rashes Extrem General: Yes no clubbing, cyanosis or edema Office Procedures Flu Questionnaire Does the patient have a severe egg allergy?: No Immunizations Fluarix Triv [id number] (PF) 45 mcg (15 mcg x 3)/0.5 mL IM syringe Performing Provider: Celestino Burr MD [place] [facility] [place] [facility] Documented (not given) by: STEPHON Jefferson on 06/05/24 10:55 Reason Not Given: Patient Refused Results Reviewed Results Reviewed: Laboratory Tests 06/04/24 06/04/24 11:04 11:07 WBC 9.1 Hgb 15.1 Hct 44.0 Plt Count 282 Sodium 141 Potassium 4.1 D Creatinine 0.94 Estimated GFR > 60 Fasting Glucose 91 Hemoglobin A1c % 5.1 Calcium 9.8 Magnesium 1.7 AST 18 ALT 12 Triglycerides 122 Cholesterol 179 LDL Cholesterol, Calc 117 H HDL Cholesterol 38 L 25-OH Vitamin D Total 15.2 L TSH 1.20 Ur Specific [place] 1.015 Urine Protein Negative Urine Glucose (UA) Negative Urine Blood Negative Urine Nitrite Negative Ur Leukocyte Esterase Negative Coding Level of Care Code Est Pt Level 4 (82672) Diagnoses Mixed hyperlipidemia E78.2 Chronic obstructive pulmonary disease, unspecified COPD type J44.9 COPD type: unspecified COPD Impaired fasting glucose R73.01 Allergic rhinitis, unspecified seasonality, unspecified trigger J30.9 Allergic rhinitis trigger: unspecified Allergic rhinitis seasonality: unspecified Vitamin D deficiency E55.9 GERD without esophagitis K21.9 Hypokalemia E87.6 Alcohol use disorder F10.90 Smoker F17.200 Additional Codes PHQ-9 - 70885 - PHQ-9 Billing: Yes ([id number]) Assessment & Plan Assessment & Plan (1) Mixed hyperlipidemia: Code(s): E78.2 - Mixed hyperlipidemia Category: Medical Plan: Results of his labs done yesterday reviewed and discussed with patient - he is advised that his cholesterol numbers are acceptable (LDL is at 117 mg/dl) but should ideally be <100 mg/dl Reinforced low cholesterol diet Continue Atorvastatin 20 mg QD and Fenofibrate 145 mg QD for now - will continue to hold off on raising his dosages as he has (+) Hx of significantly elevated LFTs Will recheck his labs and fasting lipids in 4 months for follow up (2) COPD (chronic obstructive pulmonary disease): Comment: PFTs done in October 2018 showed (+) mild to moderate obstructive airway disease with no reversibility Code(s): J44.9 - Chronic obstructive pulmonary disease, unspecified Category: Medical Qualifiers: COPD type: unspecified COPD Qualified Code(s): J44.9 - Chronic obstructive pulmonary disease, unspecified Plan: Appears stable/controlled Continue Spiriva Respimat 2.5 mcg 2 puffs QD and Albuterol HFA 1 to 2 inhalations every 6 hours as needed Patient is again encouraged to quit smoking, which he states he is actively working on (3) Impaired fasting glucose: Code(s): R73.01 - Impaired fasting glucose Category: Medical Plan: HgbA1c is normal at 5.1% and FBS is normal at 91 mg/dl on his recent labs done yesterday Reinforced low calorie diet/exercise as tolerated (4) Allergic rhinitis: Code(s): J30.9 - Allergic rhinitis, unspecified Category: Medical Qualifiers: Allergic rhinitis trigger: unspecified Allergic rhinitis seasonality: unspecified Qualified Code(s): J30.9 - Allergic rhinitis, unspecified Plan: He is advised that we can increase his Fluticasone 50 mcg nasal spray to 1 spray to each nostril BID - Rx refilled (5) Vitamin D deficiency: Code(s): E55.9 - Vitamin D deficiency, unspecified Category: Medical Plan: He is also advised that his Vitamin D level was very low on his recent labs Will start him on Vitamin D3 2000 units QD (6) GERD without esophagitis: Code(s): K21.9 - Gastro-esophageal reflux disease without esophagitis Category: Medical Plan: Dietary restrictions reinforced Continue Omeprazole 40 mg QD (7) Hypokalemia: Code(s): E87.6 - Hypokalemia Category: Medical Plan: His serum potassium level is normal at 4.1 on his recent labs Continue Potassium Chloride ER tablets 20 meq QD (8) Alcohol use disorder: Comment: He is doing well He is alcohol free for six months however he is using oxycodone for back pain and has not received Vivitrol Category: Medical Plan: In remission - states that he has been sober > 4 to 5 years now He has not been on Vivitrol for a few years now and has not needed to see Dr. Peoples recently (9) Smoker: Code(s): F17.200 - Nicotine dependence, unspecified, uncomplicated Category: Social Hx Plan: Patient is counseled to continue attempts at smoking cessation States that he is now down to less than a pack a day Plan Follow up in 4 months Orders: Orders Influenza [id number] Immunization Today Z23 - Encounter for immunization Comprehensive [place]. Panel Fast 4 Months E78.00 - Pure hypercholesterolemia, unspecified Lipid Panel 4 Months E78.00 - Pure hypercholesterolemia, unspecified Complete Blood Count Auto Diff 4 Months D64.9 - Anemia, unspecified UA CC w/rflx Micro + Cult 4 Months R30.0 - Dysuria Vitamin D 25-OH Total 4 Months E55.9 - Vitamin D deficiency, unspecified Medications: New cholecalciferol (vitamin D3) 50 mcg PO DAILY 90 days 90 caps 3RF E55.9 - Vitamin D deficiency, unspecified Changed From fluticasone propionate 50 mcg/actuation 1 spray intranasal DAILY 90 days 16 mL 0RF To fluticasone propionate 50 mcg/actuation 1 spray intranasal BID 90 days 16 mL 3RF Refilled potassium chloride ER (Klor-Con M) 20 mEq PO DAILY 90 days 90 tabs 1RF
== END 2024-06-05 11:22 | disposition home or self-care (01) ==
PROVIDERS: PCP Internal Medicine; Visit Provider Internal Medicine
DX: E78.2 Mixed hyperlipidemia (principal); J44.9 Chronic obstructive pulmonary disease, unspecified; R73.01 Impaired fasting glucose; J30.9 Allergic rhinitis, unspecified; E55.9 Vitamin D deficiency, unspecified; K21.9 Gastro-esophageal reflux disease without esophagitis; E87.6 Hypokalemia; F10.90 Alcohol use, unspecified, uncomplicated; F17.200 Nicotine dependence, unspecified, uncomplicated; Z23 Encounter for immunization

== ENCOUNTER → 2024-06-05 10:32 | Outpatient (BNVA) | payer OTHER, SELFPAY | PROVIDERS: PCP Internal Medicine; Visit Provider Internal Medicine | DX: E78.2 Mixed hyperlipidemia (principal); J44.9 Chronic obstructive pulmonary disease, unspecified; R73.01 Impaired fasting glucose; J30.9 Allergic rhinitis, unspecified; E55.9 Vitamin D deficiency, unspecified; K21.9 Gastro-esophageal reflux disease without esophagitis; E87.6 Hypokalemia; F10.90 Alcohol use, unspecified, uncomplicated; F17.200 Nicotine dependence, unspecified, uncomplicated; Z71.6 Tobacco abuse counseling | CPT/HCPCS: 90471; 96127; 99212 ==

== ENCOUNTER 2024-11-07 10:06 | Outpatient (REF) | payer OTHER, SELFPAY ==
[2024-11-07 10:20] LABS: MANUAL DIFF FLAG NO
[2024-11-07 11:10] LABS: Basophils Absolute Auto 0.1 X10*3/uL (0.0-0.2); Basophils Percent Auto 0.9 % (0-2); Eosinophils Absolute Auto 0.1 X10*3/uL (0.0-0.4); Eosinophils Percent Auto 1.4 % (0-4); Hematocrit 43.1 % (42.0-52.0); Hemoglobin 14.8 g/dl (14.0-18.0); Imm Gran Abs Auto 0.02 X10*3/uL (0.00-0.03); Imm Gran Pct Auto 0.3 % (0.0-0.4); Lymphocytes Absolute Auto 1.9 X10*3/uL (1.2-4.9); Lymphocytes Percent Auto 27.6 % (20-40); Mean Corpuscular HGB Conc 34.3 g/dl (31.0-36.0); Mean Corpuscular Hemoglobin 30.5 pg (27.0-33.0); Mean Corpuscular Volume 88.7 fL (80.0-98.0); Mean Platelet Volume 8.9 fL (9.4-12.4); Monocytes Absolute Auto 0.6 X10*3/uL (0.1-1.2); Monocytes Percent Auto 8.5 % (2-11); Neutrophils Absolute Auto 4.3 x10*3/uL (2.0-8.3); Neutrophils Percent Auto 61.3 % (45-73); Platelet Count 244 X10*3/uL (160-400); Red Blood Count 4.86 X10*6/uL (4.60-5.80); Red Cell Distribution Width 13.4 % (11.0-16.0)
[2024-11-07 11:46] LABS: Appearance Urine Clear; Color Urine Yellow; Glucose Urine UA Negative (Negative); Leukocyte Esterase Urine Negative (Negative); Nitrite Urine Negative (Negative); Specific Gravity - Urine 1.015 (1.005-1.025); Urine Blood Negative (Negative); Urine Ketones Negative (Negative); Urine Protein Negative (Neg-Trace)
--- OUTSIDE RECORDS SUMMARY | 2024-11-07 11:55 | XMS_ITS | Encounter Summary ---
Author Organization [employer] Address [address] [place] [address] Care Team Providers Care Communications Assistant Name Role Phone Unavailable Primary Care Provider Unavailabl e Reason for Visit * Reason Onset Date Comments medication 08/24/2023 Encounter Details Date Type Department Care Team (Late st Contact Info) Description 08/24/2023 Telephone [facility] [address] [place] [address] Daysi Cruz DDS [address] [place] [address] medication Social History Tobacco Use Types Packs/Day Years Used Date Smoking Tobacco: Every Day Cigarettes Smokeless Tobacco: Never Sex and Gender Information Value Date Recorded Sex Assigned at Male 08/24/2023 10:18 AM EST Legal Sex Male 10:14 AM EST Gender Identity Male 08/24/2023 10:18 AM EST Sexual Orientation Choose not to disclose 2023 10:18 AM EST documented as of this encounter Miscellaneous Notes * Telephone Encounter - Yung Edgar DMD - 08/24/2023 3:12 PM EST Please follow up with Dr. Clements. Thanks. Dr. Edgar * Telephone Encounter - Alesia Najera - 08/24/2023 2:07 PM EST Patient states that antibiotic was to be sent to pharmacy but nothing yet documented in this encounter Plan of Treatment Not on file documented as of this encounter Visit Diagnoses Not on filedocumented in this encounter
--- OUTSIDE RECORDS SUMMARY | 2024-11-07 11:55 | XMS_ITS | Clinical Summary ---
Author Organization [employer] Address [address] [place] [address] Care Team Providers Care Mechanical Assembler Name Role Phone Unavailable Primary Care Provider Unavailabl e Allergies No known active allergies Medications atorvastatin (Lipitor) 20 MG tablet Take 20 mg by mouth in the morning. 07/03/2023 Active fenofibrate (Tricor) 145 MG tablet Take 145 mg by mouth in the morning. 06/01/2023 Active Spiriva Respimat 2.5 MCG/ACT inhaler TAKE 2 PUFFS BY MOUTH EVERY DAY FOR 30 DAYS 07/25/2023 Active omeprazole (PriLOSEC) [address] capsule Take 40 mg by mouth in the morning. 11/03/2022 Active fluticasone (Flonase) 50 MCG/ACT nasal spray SPRAY 1 SPRAY INTO EACH NOSTRIL EVERY DAY 12/13/2022 Active Active Problems Problem Noted Date Diagnosed Date Pain due to dental caries 08/25/2023 Non-restorable tooth 08/25/2023 Social History Tobacco Use Types Packs/Day Years Used Date Smoking Tobacco: Every Day Cigarettes Smokeless Tobacco: Never Tobacco Cessation:Ready to Q uit: Not Asked; Counseling Given: Not Answered Alcohol Use Standard Drinks/Week Comments Defer 0 (1 standard drink = 0.6 oz pur e alcohol) Sex and Gender Information Value Date Recorded Sex Assigned at Male 08/24/2023 10:18 AM EST Legal Sex Male 10:14 AM EST Gender Identity Male 08/24/2023 10:18 AM EST Sexual Orientation Choose not to disclose 2023 10:18 AM EST Last Filed Vital Signs Vital Sign Reading Time Taken Comments Blood Pressure 120/80 08/25/2023 10:23 AM EST Pulse - - Temperature - - Respiratory Rate - - Oxygen Saturation - - Inhaled Oxygen Concentration - - Weight - - Height - - Body Mass Index - - Plan of Treatment Health Maintenance Due Date Last Done Comments CT Colonography 1967 Colonoscopy 1967 Colorectal Cancer Screening 1967 Dental Oral Exam 1967 Dental Prophylaxis 1967 Dental X-Ray: Full Mouth 1967 Depression Screening 1967 FIT DNA/Cologuard 1967 FIT 1967 FOBT 1967 HIV Screening 1967 Lipid Panel 1967 SDOH Screening 1967 Sigmoidoscopy 1967 Alcohol/Substance Use Screening 1979 Hepatitis C Screening 09/26/1985 DTaP/Tdap/Td Vaccines (1 - Tdap) 09/26/1986 Hepatitis B Vaccines (1 of 3 - 19+ 3-dose series) 09/26/1986 Pneumococcal Vaccine: 50+ Ye ars (1 of 2 - PCV) 09/26/1986 Zoster Vaccines (1 of 2) 09/26/2017 COVID-19 Vaccine ( - 2023-2 5 season) 2024 Influenza Vaccine (#1) 2024 Dental X-Ray: Bitewings 08/25/2024 08/24/2023 Tobacco Screening 08/25/2024 08/25/2023 RSV Patients and Pa tients Aged 60 years or older (1 - 1-dose 75+ series) 09/26/2042 HIB Vaccines Aged Out No longer eligi ble based on patient's age to complete this topic HPV Vaccines Aged Out No longer eligi ble based on patient's age to complete this topic Hepatitis A Vaccines Aged Out No long er eligible based on patient's age to complete this topic IPV Vaccines Aged Out No longer eligi ble based on patient's age to complete this topic Meningococcal Vaccine Aged Out No darwin karl eligible based on patient's age to complete this topic RSV under 20 months Aged Out No longe r eligible based on patient's age to complete this topic Rotavirus Vaccines Aged Out No longer eligible based on patient's age to complete this topic Procedures Procedure Name Priority Date/Time Associated Diagnosis Comments BITEWING - SINGLE RADIOGRAPHIC IMAGE Routine 08/24/2023 1:00 PM EST Pain due to dental caries from Last 3 Months or Most Recently Relevant to Health Maintenance [facility] ST[facility] ADULT
[2024-11-07 12:02] LABS: Alanine Aminotransferase 11 U/L (0-40); Albumin Level 4.4 g/dL (3.5-5.0); Anion Gap 13 (12-20); Aspartate Amino Transferase 20 U/L (5-37); Bilirubin Total 0.6 mg/dL (0.0-1.0); Blood Urea Nitrogen 10 mg/dL (9-16); Calcium 9.2 mg/dL (8.4-10.2); Carbon Dioxide 24 mmol/L (22-29); Chloride 107 mmol/L (96-108); Cholesterol 171 mg/dL (<200); Estimated Glomerular Filt Rate > 60; Glucose Fasting 92 mg/dL (60-99); HDL Cholesterol 41 mg/dL (>40); LDL Cholesterol Calculated 110 mg/dL (<100); Potassium 4.6 mmol/L (3.3-5.1); Sodium 139 mmol/L (135-145); Triglycerides 101 mg/dL (<150); Vitamin D 25-OH Total 26.2 ng/mL (>30)
[2024-11-07 12:13] LABS: Alkaline Phosphatase 60 U/L (39-117)
== END 2024-11-07 10:07 | disposition home or self-care (01) ==
LOC: HO.LAB 10:06
PROVIDERS: PCP Internal Medicine; Visit Provider Internal Medicine
DX: E78.2 Mixed hyperlipidemia (principal); J44.9 Chronic obstructive pulmonary disease, unspecified; R73.01 Impaired fasting glucose; J30.9 Allergic rhinitis, unspecified; E55.9 Vitamin D deficiency, unspecified; K21.9 Gastro-esophageal reflux disease without esophagitis; E87.6 Hypokalemia; F10.90 Alcohol use, unspecified, uncomplicated; F17.200 Nicotine dependence, unspecified, uncomplicated; Z79.899 Other long term (current) drug therapy; D64.9 Anemia, unspecified; R30.0 Dysuria
CPT/HCPCS: 36415; 80053; 80061; 81003; 82306; 85025; 96127; 99212

== ENCOUNTER 2024-11-07 12:05 | Outpatient (AMB) | payer OTHER, SELFPAY ==
[2024-11-07 12:14] VITALS: BP 108/72; PULSE 73; O2SAT 95; BMI 25.0
--- NOTE | 2024-11-07 12:14 | A.OFFPC_ITS ---
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 Accompanied by: Self / Same As Patient Allergies Influenza Virus Vaccines Allergy (Unknown, Verified 11/07/24 12:24) gets sick everytime he gets injection colesevelam [WelChol] Adverse Reaction (Intermediate, Verified 11/07/24 12:24) nausea and vomiting Medication List - Last Reconciled 11/07/24 by Celestino Burr MD albuterol sulfate 90 mcg/actuation 2 puffs inhalation Q6H PRN 30 days atorvastatin 20 mg PO DAILY cholecalciferol (vitamin D3) 50 mcg PO DAILY 90 days fenofibrate nanocrystallized 145 mg PO DAILY fluticasone propionate 50 mcg/actuation 1 spray intranasal BID 90 days folic acid 1 mg PO DAILY 30 days ibuprofen 600 mg PO TID PRN ipratropium-albuterol 0.5 mg-3 mg(2.5 mg base)/3 mL 3 mL inhalation QID PRN nebulizers As directed omeprazole 40 mg PO DAILY potassium chloride ER (Klor-Con M) 20 mEq PO DAILY 90 days sodium,potassium,mag sulfates 17.5-3.13-1.6 gram (Suprep Bowel Prep Kit) 480 mL orally; FOR COLONOSCOPY PREP tiotropium bromide 2.5 mcg/actuation (Spiriva Respimat) 2 puffs inhalation DAILY vitamin B complex 1 cap PO DAILY 90 days Tobacco use date assessed: 11/07/24 Dental Screening Dental Screen Date: 11/07/24 Did you have a dental visit in the last 12 months?: Yes Did you have a dental problem in the last 6 months where you did not have access to dental care?: No Was dental information given to patient?: Patient has dentist HPI 4 month f/u HPI Details Patient comes in today for his follow-up visit States that he feels okay He denies any headaches or dizziness Denies any chest pains, no shortness of breath No nausea/vomiting, no abdominal pain No change in bowel habits noted He had his follow-up labs done earlier this morning - to discuss his results FOR[facility]LY [facility] Medical History Vitamin D deficiency Allergic rhinitis Right inguinal hernia Umbilical hernia Overweight (BMI 25.0-29.9) Smoker GERD without esophagitis Tobacco use disorder Alcohol use disorder Impaired fasting glucose COPD (chronic obstructive pulmonary disease) Benign essential hypertension Mixed hyperlipidemia Surgical History Hx of umbilical hernia repair (11/28/23) Hx of bilateral inguinal hernia repair (11/28/23) H/O eye surgery History of nephrolithiasis History of inguinal hernia repair Family History Father Hypertension Mother Hypertension Other Substance use disorder Social History Housing: House Alcohol intake: former Comment: medicated with oxycodone Patient Tobacco Use Status: Current everyday Tobacco user Tobacco use type: Cigarette Cigarette Packs Per Day: 1 Cigarettes Per Day: 20 e-Cigarette/Vaping Use: Never Used Second Hand Smoke Exposure: Yes service: No Current occupational status: unemployed Cognitive needs: No Hearing needs: No Vision needs: Yes (glasses) Questionnaire PHQ-9 Over the last 2 weeks, how often have you been bothered by any of the following problems? 1. Little interest or pleasure in doing things: not at all 2. Feeling down, depressed, or hopeless: not at all 3. Trouble falling or staying asleep, or sleeping too much: not at all 4. Feeling tired or having little energy: not at all 5. Poor appetite or overeating: not at all 6. Feeling bad about yourself - or that you are a failure or have let yourself or your family down: not at all 7. Trouble concentrating on things, such as reading the newspaper or watching television: not at all 8. Moving or speaking so slowly that other people could have noticed. Or the opposite - being so fidgety or restless that you have been moving around a lot more than usual: not at all 9. Thoughts that you would be better off or of hurting yourself in some way: not at all Total score: 0 Depression Screening Interpretation: Negative Depression Screening Done: Yes 77848 - PHQ-9 Billing: Yes Source: Developed by Drs. Shine Major, Etienne Currie and colleagues, with an educational carrington from [employer]. Thrive Questionnaire Date Thrive assessed: 11/07/24 I am a: Patient What is your living situation today?: I have a steady place to live Within the past 12 months, did the food you bought not last and you didn't have the money to get more?: Never true Within the past 12 months, did you worry whether your food would run out before you got money to buy more?: Never true Do you have trouble paying for medicines?: No Do you have trouble getting transportation to medical appointments?: No Do you have trouble paying your heating and electricity bill?: No Do you have trouble taking care of your child, family member or friend?: No Do you have trouble with day-to-day activities such as bathing, preparing meals, shopping, managing finances, etc.?: No Are you currently unemployed and looking for a job?: No Are you interested in more education?: No Please select the resources that you would like help with: None Currently or been in a relationship where the following occur: No concerns reported THRIVE Score: 0 AUDIT C Alcohol Use Questionnaire (AUDIT-C) 1. How often do you have a drink containing alcohol?: Never 3. How often do you have six or more drinks on one occasion?: Never Total Score: 0 Score Reviewed/Action Taken: Yes KRISTY-7 AMB Questionnaire KRISTY-7 Date KRISTY - 7 assessed: 11/07/24 Feeling nervous, anxious, or on edge: 0 = Not at all Not being able to stop or control worryin = Not at all Worrying too much about different things: 0 = Not at all Trouble relaxin = Not at all Being so restless that it is hard to sit still: 0 = Not at all Becoming easily annoyed or irritable: 0 = Not at all Feeling afraid as if something awful might happen: 0 = Not at all Total KRISTY-7 score (0-4 normal; 5-9 mild; 10-14 moderate; 15-21 severe): 0 Source: Developed by Mary Hussein Kurt Kroenke and colleagues, with an educational carrington from [employer]. Review of Systems Const Denies chills, Denies fatigue, Denies fever(s) and Denies headache(s) ENT Denies dysphagia, Denies dizziness, Denies otalgia, Denies headache(s), Denies neck pain, Denies odynophagia and Denies sore throat Card Denies chest pain, Denies palpitations and Denies dyspnea Resp Denies chest congestion, Reports cough (on and off; coughs up thick whitish phlegm at times), Denies dyspnea and Denies wheezing GI Denies abdominal pain, Denies constipation, Denies dysphagia, Denies heartburn, Denies diarrhea, Denies nausea, Denies odynophagia and Denies vomiting Denies dysuria, Denies nocturia and Denies urinary frequency Musc Denies back pain and Denies neck pain Skin/Breast Denies rash Neuro Denies dizziness and Denies headache(s) Psych Denies anxiety Endo Denies fatigue and Denies palpitations Aller/Immun Denies wheezing Physical exam (Primary Care) Vital Signs: Last Vital Signs Pulse 73 11/07/24 12:14 BP 108/72 11/07/24 12:14 Pulse Ox 95 11/07/24 12:14 Oxygen Delivery Method Room Air 11/07/24 12:14 BMI result Body Mass Index 25.0 Tobacco/Smoking Status: Tobacco use Status Tobacco use date assessed 11/07/24 11/07/24 12:20 Patient Tobacco Use Status Current everyday Tobacco 11/07/24 12:20 Tobacco use type Cigarette 11/07/24 12:20 e-Cigarette/Vaping Use Never Used 11/07/24 12:20 PHQ-9: PHQ-9 Score PHQ-9: Total score 0 11/08/24 05:20 Depression Screening Interpretation: Negative Thrive Assessment: Date of Thrive Assessment Date Thrive assessed 11/07/24 11/07/24 12:20 Currently or been in a relationship where the following occur: No concerns reported Const General: no acute distress and alert HENMT Ears: TM's normal bilaterally and EAC's normal Throat: Yes posterior oropharynx normal and Yes tonsils normal (no TP congestion) Neck Neck: Yes supple and No lymphadenopathy Thyroid: Thyroid normal Resp Auscultation: no crackles, no rales, no wheezes and diminished lung sounds bilateral Cardio Rate: regular rate Rhythm: regular rhythm Heart sounds: no murmurs GI Palpation (GI): Soft to palpation and nontender Auscultation: normal bowel sounds General: Yes no CVA tenderness Back/Spine/Pelvis Back: no CVA tenderness Thoracic/Lumbar Spine: No lumbar spinal tenderness Skin Rashes: no rashes Extrem General: Yes no clubbing, cyanosis or edema Results Reviewed Results Reviewed: Laboratory Tests 11/07/24 11/07/24 10:19 10:26 WBC 7.0 Hgb 14.8 Hct 43.1 Plt Count 244 Sodium 139 Potassium 4.6 Creatinine 1.03 Estimated GFR > 60 Fasting Glucose 92 Calcium 9.2 D AST 20 ALT 11 Triglycerides 101 Cholesterol 171 LDL Cholesterol, Calc 110 H HDL Cholesterol 41 25-OH Vitamin D Total 26.2 L Ur Specific [place] 1.015 Urine Protein Negative Urine Glucose (UA) Negative Urine Blood Negative Urine Nitrite Negative Ur Leukocyte Esterase Negative Coding Level of Care Code Est Pt Level 4 (17653) Complex EM visit Add On G2211 Diagnoses Mixed hyperlipidemia E78.2 Chronic obstructive pulmonary disease, unspecified COPD type J44.9 COPD type: unspecified COPD Impaired fasting glucose R73.01 Allergic rhinitis, unspecified seasonality, unspecified trigger J30.9 Allergic rhinitis seasonality: unspecified Allergic rhinitis trigger: unspecified Vitamin D deficiency E55.9 GERD without esophagitis K21.9 Hypokalemia E87.6 Alcohol use disorder F10.90 Smoker F17.200 Additional Codes PHQ-9 - 53465 - PHQ-9 Billing: Yes ([id number]) Assessment & Plan Assessment & Plan (1) Mixed hyperlipidemia: Code(s): E78.2 - Mixed hyperlipidemia Category: Medical Plan: Results of his labs done earlier today reviewed and discussed with patient - his cholesterol numbers have improved slightly from previous Reinforced low cholesterol diet Continue Atorvastatin 20 mg QD and Fenofibrate 145 mg QD - will continue to hold off on raising his dosages as he has (+) Hx of significantly elevated LFTs Will recheck his labs and fasting lipids in 4 months for follow up (2) COPD (chronic obstructive pulmonary disease): Comment: PFTs done in October 2018 showed (+) mild to moderate obstructive airway disease with no reversibility Code(s): J44.9 - Chronic obstructive pulmonary disease, unspecified Category: Medical Qualifiers: COPD type: unspecified COPD Qualified Code(s): J44.9 - Chronic obstructive pulmonary disease, unspecified Plan: Appears controlled Continue Spiriva Respimat 2.5 mcg 2 puffs QD and Albuterol HFA 1 to 2 inhalations every 6 hours as needed Patient is again encouraged to quit smoking, which he states he is actively working on (3) Impaired fasting glucose: Code(s): R73.01 - Impaired fasting glucose Category: Medical Plan: His FBS is normal at 92 mg/dl on his labs done earlier today; HgbA1c was normal at 5.1% when previously checked Reinforced low calorie/low carb diet; exercise as tolerated (4) Allergic rhinitis: Code(s): J30.9 - Allergic rhinitis, unspecified Category: Medical Qualifiers: Allergic rhinitis seasonality: unspecified Allergic rhinitis trigger: unspecified Qualified Code(s): J30.9 - Allergic rhinitis, unspecified Plan: Continue Fluticasone 50 mcg nasal spray to each nostril BID PRN (5) Vitamin D deficiency: Code(s): E55.9 - Vitamin D deficiency, unspecified Category: Medical Plan: Improving - continue Vitamin D3 2000 units QD (6) GERD without esophagitis: Code(s): K21.9 - Gastro-esophageal reflux disease without esophagitis Category: Medical Plan: Dietary restrictions reinforced Continue Omeprazole 40 mg QD (7) Hypokalemia: Code(s): E87.6 - Hypokalemia Category: Medical Plan: His serum potassium level remains normal at 4.6 on his recent labs Continue Potassium Chloride ER tablets 20 meq QD (8) Alcohol use disorder: Comment: He is doing well He is alcohol free for six months however he is using oxycodone for back pain and has not received Vivitrol Category: Medical Plan: In remission - states that he has been sober > 5 years He has not been on Vivitrol for a few years now and has not needed to see Dr. Peoples recently (9) Smoker: Code(s): F17.200 - Nicotine dependence, unspecified, uncomplicated Category: Social Hx Plan: Patient is counseled to continue attempts at complete smoking cessation States that he is now down to less than a pack a day Plan Follow up in 4 months Orders: Orders Lipid Panel 4 Months E78.00 - Pure hypercholesterolemia, unspecified Complete Blood Count Auto Diff 4 Months D64.9 - Anemia, unspecified Vitamin B12 and Folate 4 Months E53.8 - Deficiency of other specified B group vitamins Comprehensive [place]. Panel Fast 4 Months E78.00 - Pure hypercholesterolemia, unspecified Hemoglobin A1c 4 Months R73.01 - Impaired fasting glucose TSH reflex Free T4 4 Months E78.00 - Pure hypercholesterolemia, unspecified UA CC w/rflx Micro + Cult 4 Months R30.0 - Dysuria Vitamin D 25-OH Total 4 Months E55.9 - Vitamin D deficiency, unspecified
--- OUTSIDE RECORDS SUMMARY | 2024-11-07 15:01 | XMS_ITS | Encounter Summary ---
Author Organization [employer] Address [address] [place] [address] Care Team Providers Care Environmental Planner Name Role Phone Unavailable Primary Care Provider Unavailabl e Reason for Visit * Reason Onset Date Comments medication 08/24/2023 Encounter Details Date Type Department Care Team (Late st Contact Info) Description 08/24/2023 Telephone [facility] [address] [place] [address] Daysi Cruz DDS [address] [place] [address] medication Social History Tobacco Use Types Packs/Day [...]
--- OUTSIDE RECORDS SUMMARY | 2024-11-07 15:01 | XMS_ITS | Clinical Summary ---
Author Organization [employer] Address [address] [place] [address] Care Team Providers Care Business Sales Consultant Name Role Phone Unavailable Primary Care Provider [...] Most Recently Relevant to Health Maintenance [facility] ST[facility] ADULT
== END 2024-11-07 12:31 | disposition home or self-care (01) ==
LOC: HO.HMCH 12:06
PROVIDERS: PCP Internal Medicine; Visit Provider Internal Medicine
DX: E78.2 Mixed hyperlipidemia (principal); J44.9 Chronic obstructive pulmonary disease, unspecified; R73.01 Impaired fasting glucose; J30.9 Allergic rhinitis, unspecified; E55.9 Vitamin D deficiency, unspecified; K21.9 Gastro-esophageal reflux disease without esophagitis; E87.6 Hypokalemia; F10.90 Alcohol use, unspecified, uncomplicated; F17.200 Nicotine dependence, unspecified, uncomplicated

== ENCOUNTER 2025-01-02 11:16 | Outpatient (REF) | payer OTHER, SELFPAY ==
--- NOTE | ~2025-01-02 | CT_ITS ---
CLINICAL HISTORY: NEOPLASM OF VOCAL CORD CT soft tissue neck with contrast Comparison: None Findings: There is thickening of the supraglottic region, measuring 1.9 x 1.8 cm with obstruction of the airway (axial image 67 of series 3). 1.3 x 1.0 cm nodule is also seen in the right vallecula with decreased aeration (axial image 58 of series 3). There is non aeration of the left piriform sinus. Salivary glands are within normal limits. No sialoliths. Thyroid gland is unremarkable. Encephalomalacia is seen within bilateral frontal lobes. Centrilobular emphysema is seen in the upper lobes. No acute fracture or dislocation. IMPRESSION: 1. Thickening of the supraglottic region, measuring 1.9 x 1.8 cm and suspicious for neoplasm. There is associated obstruction of the airway. 2. 1.3 x 1.0 cm nodule in the right vallecula. Recommend correlation with direct visualization. 3. Remote bilateral frontal lobe infarcts. 4. Pulmonary emphysema. This document has been electronically signed by: Dom Penny on 01/03/2025 08:31:53
--- NOTE | ~2025-01-02 | CT_ITS ---
CLINICAL HISTORY: NEOPLASM OF VOCAL CORD CT chest with contrast Comparison: None Findings: The thyroid gland appears normal. There is no mediastinal, hilar, or axillary lymphadenopathy. The heart is normal in size. There is no pericardial effusion. Coronary artery calcifications are present. Moderate centrilobular emphysema is present. No suspicious pulmonary nodule is identified. Limited examination of the upper abdomen demonstrates no significant abnormality. Mild to moderate degenerative changes are seen in the spine. No acute osseous abnormality is identified. No aggressive lytic or blastic lesion is seen. IMPRESSION: 1. Moderate pulmonary emphysema. No suspicious pulmonary nodule is identified. This document has been electronically signed by: Dom Penny on 01/03/2025 08:35:07
[2025-01-02] MEDS: iohexoL 350 MG/ML 100 ML INFUS..BTL IV (12:25)
[2025-01-02 14:52] LABS: Creatinine POC 1.2 mg/dL (0.5-1.4); GFR POC > 60
== END 2025-01-02 11:17 | disposition home or self-care (01) ==
LOC: HO.CT 11:16
PROVIDERS: PCP Internal Medicine; Visit Provider Otolaryngology
DX: D49.1 Neoplasm of unspecified behavior of respiratory system (principal)
CPT/HCPCS: 70491; 71260; 82565; Q9967

== ENCOUNTER → 2025-01-02 11:39 | Outpatient (BNV) | payer OTHER, SELFPAY | PROVIDERS: PCP Internal Medicine; Visit Provider Radiology Vascular & Interventional Radiology | DX: R91.1 Solitary pulmonary nodule (principal); J43.2 Centrilobular emphysema | CPT/HCPCS: 70491; 71260 ==

== ENCOUNTER 2025-07-08 12:51 | Outpatient (AMB) | payer OTHER, SELFPAY ==
--- NOTE | 2025-07-08 13:03 | MHC.PC.OV ---
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 Accompanied by: Self / Same As Patient Allergies Influenza Virus Vaccines Allergy (Unknown, Verified 07/08/25 13:35) gets sick everytime he gets injection colesevelam (WelChol) Adverse Reaction (Intermediate, Verified 07/08/25 13:35) nausea and vomiting Medication List - Last Reconciled 07/08/25 by Celestino Burr MD albuterol sulfate 90 mcg/actuation 2 puffs inhalation Q6H PRN 30 days atorvastatin 20 mg PO DAILY cholecalciferol (vitamin D3) 50 mcg PO DAILY 90 days fenofibrate nanocrystallized 145 mg PO DAILY fluticasone propionate 50 mcg/actuation 1 spray intranasal BID 90 days folic acid 1 mg PO DAILY 30 days ibuprofen 600 mg PO TID PRN ipratropium-albuterol 0.5 mg-3 mg(2.5 mg base)/3 mL 3 mL inhalation QID PRN nebulizers As directed nicotine 1 patch topical DAILY nystatin 5 mL PO QID omeprazole 40 mg PO DAILY potassium chloride ER (Klor-Con M) 20 mEq PO DAILY 90 days saliva substitute combo no.9 (Biotene Dry Mouth Oral Rinse mouthwash) PO tiotropium bromide 2.5 mcg/actuation (Spiriva Respimat) 2 puffs inhalation DAILY vitamin B complex 1 cap PO DAILY 90 days Tobacco use date assessed: 11/07/24 Dental Screening Dental Screen Date: 11/07/24 HPI hyperlipidemia, elevated LFTs, COPD, IFG, smoker, HPI Details Patient comes in today for his follow up visit He has a history of cancer on the left vocal cord, which was diagnosed by ENT a few months ago during an evaluation with a laryngoscope He underwent tumor debulking with Dr. Pretty on 12/20/2024 followed by definitive external beam radiation therapy to the larynx and regional nodes to a total dose of 7000 cGy in [address]Seth Rajput from 03/12/2025 to 04/30/2025 He has a follow-up CT scheduled for September 2025 Patient states that due to the radiation therapy that he recent underwent, he was unable to eat for a couple of months, resulting in a weight loss of over 20 pounds. His ability to swallow has since returned, and he is now able to eat again. 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 Vitamin D deficiency Allergic rhinitis Right inguinal hernia Umbilical hernia Overweight (BMI 25.0-29.9) Smoker GERD without esophagitis Tobacco use disorder Alcohol use disorder Impaired fasting glucose COPD (chronic obstructive pulmonary disease) Benign essential hypertension Mixed hyperlipidemia Surgical History Hx of umbilical hernia repair (11/28/23) Hx of bilateral inguinal hernia repair (11/28/23) H/O eye surgery History of nephrolithiasis History of inguinal hernia repair Family History Father Hypertension Mother Hypertension Other Substance use disorder Social History Housing: House Alcohol intake: former Comment: medicated with oxycodone Patient Tobacco Use Status: Current everyday Tobacco user Tobacco use type: Cigarette Cigarette Packs Per Day: 1 Cigarettes Per Day: 20 e-Cigarette/Vaping Use: Never Used Second Hand Smoke Exposure: Yes service: No Current occupational status: unemployed Cognitive needs: No Hearing needs: No Vision needs: Yes (glasses) Questionnaire PHQ-9 Over the last 2 weeks, how often have you been bothered by any of the following problems? 1. Little interest or pleasure in doing things: not at all 2. Feeling down, depressed, or hopeless: not at all 3. Trouble falling or staying asleep, or sleeping too much: not at all 4. Feeling tired or having little energy: not at all 5. Poor appetite or overeating: not at all 6. Feeling bad about yourself - or that you are a failure or have let yourself or your family down: not at all 7. Trouble concentrating on things, such as reading the newspaper or watching television: not at all 8. Moving or speaking so slowly that other people could have noticed. Or the opposite - being so fidgety or restless that you have been moving around a lot more than usual: not at all 9. Thoughts that you would be better off or of hurting yourself in some way: not at all Total score: 0 Depression Screening Interpretation: Negative Depression Screening Done: Yes 84337 - PHQ-9 Billing: Yes Source: Developed by Drs. Shine Major, Mary Ngo, Etienne Park and colleagues, with an educational carrington from [employer]. Thrive Questionnaire Date Thrive assessed: 07/01/25 I am a: Patient What is your living situation today?: I have a place to live, but I am worried about losing it in the future Within the past 12 months, did the food you bought not last and you didn't have the money to get more?: Sometimes True Within the past 12 months, did you worry whether your food would run out before you got money to buy more?: Sometimes True Do you have trouble paying for medicines?: No Do you have trouble getting transportation to medical appointments?: No Do you have trouble paying your heating and electricity bill?: Yes Do you have trouble taking care of your child, family member or friend?: No Do you have trouble with day-to-day activities such as bathing, preparing meals, shopping, managing finances, etc.?: No Are you currently unemployed and looking for a job?: No Are you interested in more education?: No Please select the resources that you would like help with: Housing/Custodial Currently or been in a relationship where the following occur: No concerns reported THRIVE Score: 4 AUDIT C Alcohol Use Questionnaire (AUDIT-C) 1. How often do you have a drink containing alcohol?: Never Total Score: 0 Score Reviewed/Action Taken: Yes KRISTY-7 AMB Questionnaire KRISTY-7 Date KRISTY - 7 assessed: 11/07/24 Feeling nervous, anxious, or on edge: 0 = Not at all Not being able to stop or control worryin = Not at all Worrying too much about different things: 0 = Not at all Trouble relaxin = Not at all Being so restless that it is hard to sit still: 0 = Not at all Becoming easily annoyed or irritable: 1 = Several days Feeling afraid as if something awful might happen: 0 = Not at all Total KRISTY-7 score (0-4 normal; 5-9 mild; 10-14 moderate; 15-21 severe): 1 Source: Developed by Drs. Shine Major, Mary Ngo, Etienne Park and colleagues, with an educational carrington from [employer]. Review of Systems Const Denies chills, Reports fatigue, Denies fever(s) and Denies headache(s) ENT Denies dysphagia, Denies dizziness, Denies otalgia, Denies headache(s), Denies neck pain, Denies odynophagia and Denies sore throat Card Denies chest pain, Denies palpitations and Denies dyspnea Resp Denies chest congestion, Denies cough, Denies dyspnea and Denies wheezing GI Denies abdominal pain, Denies constipation, Denies dysphagia, Denies heartburn, Denies diarrhea, Denies nausea, Denies odynophagia and Denies vomiting Denies difficulty urinating, Denies dysuria, Denies nocturia and Denies urinary frequency Musc Denies back pain and Denies neck pain Skin/Breast Denies rash Neuro Denies dizziness and Denies headache(s) Psych Denies anxiety Endo Reports fatigue and Denies palpitations Aller/Immun Denies wheezing Physical exam (Primary Care) Vital Signs: Last Vital Signs Temp 97.1 F 07/08/25 13:04 Pulse 92 07/08/25 13:04 BP 106/58 L 07/08/25 13:04 Pulse Ox 97 07/08/25 13:04 Oxygen Delivery Method Room Air 07/08/25 13:04 BMI result Body Mass Index 21.5 Tobacco/Smoking Status: Tobacco use Status Tobacco use date assessed 11/07/24 07/08/25 13:10 Patient Tobacco Use Status Current everyday Tobacco 07/08/25 13:10 Tobacco use type Cigarette 07/08/25 13:10 e-Cigarette/Vaping Use Never Used 07/08/25 13:10 PHQ-9: PHQ-9 Score PHQ-9: Total score 0 07/08/25 13:44 Depression Screening Interpretation: Negative Thrive Assessment: Date of Thrive Assessment Date Thrive assessed 07/01/25 07/08/25 13:10 Currently or been in a relationship where the following occur: No concerns reported Const General: no acute distress and alert HENMT Ears: TM's normal bilaterally and EAC's normal Throat: Yes posterior oropharynx normal and Yes tonsils normal (no TP congestion) Neck Neck: Yes supple and No lymphadenopathy Thyroid: Thyroid normal Resp Auscultation: no crackles, no rales and diminished lung sounds bilateral Cardio Rate: regular rate Rhythm: regular rhythm Heart sounds: no murmurs GI Palpation (GI): Soft to palpation and nontender Auscultation: normal bowel sounds General: Yes no CVA tenderness Back/Spine/Pelvis Back: no CVA tenderness Thoracic/Lumbar Spine: No lumbar spinal tenderness Skin Rashes: no rashes Extrem General: Yes no clubbing, cyanosis or edema Coding Level of Care Code Est Pt Level 4 (68930) Add On Problem Visit Only Diagnoses 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 C32.0 Mixed hyperlipidemia E78.2 Chronic obstructive pulmonary disease, unspecified COPD type J44.9 COPD type: unspecified COPD Impaired fasting glucose R73.01 Allergic rhinitis, unspecified seasonality, unspecified trigger J30.9 Allergic rhinitis trigger: unspecified Allergic rhinitis seasonality: unspecified Vitamin D deficiency E55.9 GERD without esophagitis K21.9 Hypokalemia E87.6 Alcohol use disorder F10.90 Smoker F17.200 Additional Codes PHQ-9 - 19397 - PHQ-9 Billing: Yes ([id number]) Assessment & Plan Assessment & Plan (1) 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 Pretty on 12/20/2024 followed by definitive external beam radiation therapy to the larynx and regional nodes to a total dose of 7000 cGy in [address]Seth Rajput from 03/12/2025 to 04/30/2025 He has a follow-up CT scheduled for September 2025 for post-treatment surveillance (2) Mixed hyperlipidemia: Code(s): E78.2 - Mixed hyperlipidemia Category: Medical Plan: Patient did not have any follow up labs done prior to his appointment today As he has not had any follow up labs done in several months, will have him go and get these done WING - will just have him use his previous orders (updated) for his lab draw Reinforced low cholesterol diet Continue Atorvastatin 20 mg QD and Fenofibrate 145 mg QD - we held off on raising his dosages due to his Hx of significantly elevated LFTs Will recheck his labs and fasting lipids again in 4 months for follow up (3) COPD (chronic obstructive pulmonary disease): Comment: PFTs done in October 2018 showed (+) mild to moderate obstructive airway disease with no reversibility Code(s): J44.9 - Chronic obstructive pulmonary disease, unspecified Category: Medical Qualifiers: COPD type: unspecified COPD Qualified Code(s): J44.9 - Chronic obstructive pulmonary disease, unspecified Plan: Controlled Continue Spiriva Respimat 2.5 mcg 2 puffs QD and Albuterol HFA 1 to 2 inhalations every 6 hours as needed Patient is again encouraged to quit smoking, which he is actively working on (4) Impaired fasting glucose: Code(s): R73.01 - Impaired fasting glucose Category: Medical Plan: His FBS was normal at 92 mg/dl on his most recent labs done back in October 2024; HgbA1c was normal at 5.1% when previously checked Reinforced low calorie/low carb diet; exercise as tolerated (5) Allergic rhinitis: Code(s): J30.9 - Allergic rhinitis, unspecified Category: Medical Qualifiers: Allergic rhinitis trigger: unspecified Allergic rhinitis seasonality: unspecified Qualified Code(s): J30.9 - Allergic rhinitis, unspecified Plan: Continue Fluticasone 50 mcg nasal spray to each nostril BID PRN (6) Vitamin D deficiency: Code(s): E55.9 - Vitamin D deficiency, unspecified Category: Medical Plan: Continue Vitamin D3 2000 units QD (7) GERD without esophagitis: Code(s): K21.9 - Gastro-esophageal reflux disease without esophagitis Category: Medical Plan: Dietary restrictions reinforced Continue Omeprazole 40 mg QD (8) Hypokalemia: Code(s): E87.6 - Hypokalemia Category: Medical Plan: His serum potassium level was normal at 4.6 when last checked in October 2024 Continue Potassium Chloride ER tablets 20 meq QD (9) Alcohol use disorder: Comment: He is doing well He is alcohol free for six months however he is using oxycodone for back pain and has not received Vivitrol Category: Medical Plan: In remission - states that he has been sober > 5 years He has not been on Vivitrol for a few years now and has not needed to see Dr. Peoples recently (10) Smoker: Code(s): F17.200 - Nicotine dependence, unspecified, uncomplicated Category: Social Hx Plan: Patient is counseled to continue attempts at complete smoking cessation, especially with his COPD and his recent left vocal cord cancer States that he is now down to about 10 cigarettes a day and will keep working on quitting Plan Follow up in 4 months Orders: Orders Complete Blood Count Auto Diff 4 Months D64.9 - Anemia, unspecified Comprehensive [place]. Panel Fast 4 Months E78.00 - Pure hypercholesterolemia, unspecified Vitamin D 25-OH Total 4 Months E55.9 - Vitamin D deficiency, unspecified Lipid Panel 4 Months E78.00 - Pure hypercholesterolemia, unspecified TSH reflex Free T4 4 Months E78.00 - Pure hypercholesterolemia, unspecified UA CC w/rflx Micro + Cult 4 Months R30.0 - Dysuria Hemoglobin A1c 4 Months R73.01 - Impaired fasting glucose Medications: New nystatin 5 mL PO QID PRN 250 mL 11RF oral thrush Refilled fluticasone propionate 50 mcg/actuation 1 spray intranasal BID 16 mL 1RF 90 days
[2025-07-08 13:04] VITALS: BP 106/58; PULSE 92; TEMP 36.2; O2SAT 97; BMI 21.5
--- OUTSIDE RECORDS SUMMARY | 2025-07-08 16:41 | XMS_ITS | Clinical Summary ---
Author Organization [facility] Address [address] [place] [id number] Phone Care Team Providers Care Manager Laboratory Name Role Phone Celestino Burr MD Primary Care Provider Allergies No known active allergies Medications omeprazole (PriLOSEC) [address] capsule Take 1 capsule (40 mg total) by mouth daily. 3 Active tiotropium (Spiriva Respimat) 2.5 mcg/actuation inhalation spray TAKE 2 PUFFS BY MOUTH EVERY DAY FOR 30 DAYS 4 Active fenofibrate (TRICOR) 145 mg tablet Take 1 tablet (145 mg total) by mouth daily. 3 Active atorvastatin (LIPITOR) 20 mg tablet Take 1 tablet (20 mg total) by mouth daily. 3 Active fluticasone propionate (FLONASE) 50 mcg/actuation nasal spray Administer 1 spray into each nostril 1 (one) time each day. 3 Active Active Problems Problem Noted Date Diagnosed Date Neoplasm of respiratory system 12/20/2024 Surgical History Surgery Date Site/Laterality Comments HERNIA REPAIR x 3 EYE SURGERY Medical History Medical History Date Comments Hyperlipidemia GERD (gastroesophageal reflux disease) Asthma Hoarse voice quality Social History Tobacco Use Types Packs/Day Years Used Date Smoking Tobacco: Every Day Cigarettes Tobacco Cessation:Ready to Q uit: Not Asked; Counseling Given: Not Answered Alcohol Use Standard Drinks/Week Comments Not Currently 0 (1 standard drink = 0.6 oz pur e alcohol) Interpersonal Safety Answer Date Record ed Physical Abuse Unrecognized value 12/20/2024 Verbal Abuse Unrecognized value 12/20/2024 Sex and Gender Information Value Date Recorded Sex Assigned at Not on file Legal Sex Male 11:26 AM EDT Gender Identity Not on file Sexual Orientation Not on file Last Filed Vital Signs Vital Sign Reading Time Taken Comments Blood Pressure 121/76 12/20/2024 3:22 PM EDT Pulse 57 12/20/2024 3:22 PM EDT Temperature 36.1 C (97 F) 12/20/2024 3:22 PM EDT Respiratory Rate 16 12/20/2024 3:22 PM EDT Oxygen Saturation 97% 12/20/2024 3:22 PM EDT Inhaled Oxygen Concentration - - Weight 79.8 kg (176 lb) 12/05/2024 3:00 PM EDT Height 175.3 cm (5' 9 ) 12/05/2024 3:00 PM EDT Body Mass Index 25.99 12/05/2024 3:00 PM EDT Plan of Treatment Health Maintenance Due Date Last Done Comments Colorectal Cancer Screening: Colonoscopy 1965 DTaP,Tdap,and Td Vaccines (1 - Tdap) 09/26/1986 Hepatitis B Vaccines (1 of 3 - 19+ 3-dose series) 09/26/1986 Pneumococcal Vaccine: 50+ Ye ars (1 of 2 - PCV) 09/26/1986 Zoster Vaccines (1 of 2) 09/26/2017 Depression Screening 07/24/2024 Cholesterol Screening (Lipid Panel) 12/04/2024 HIV Screening 12/04/2024 Hepatitis C Screening 12/04/2024 Social Influencers of Health Screening 12/04/2024 COVID-19 Vaccine ( - 2024-2 6 season) 2025 Influenza Vaccine (#1) 2025 RSV Immunization Adult Patie nts (1 - 1-dose 75+ series) 09/26/2042 HIB [...] on patient's age to complete this topic MMR Vaccines Aged Out No longer eligi ble based on patient's age to complete this topic Meningococcal ACWY Vaccine Aged Out N o longer eligible based on patient's age to complete this topic Meningococcal B Vaccine Aged Out No l onger eligible based on patient's age to complete this topic RSV Immunization Patients Un july 20 months Aged Out No longer eligible b ased on patient's age to complete this topic Varicella Vaccines Aged Out No longer eligible based on patient's age to complete [place] [phone] Care Teams Manager Laboratory Relationship Specialty Start Date End Date Celestino Burr MD PCP - General Internal Medicine 12/13/24
--- OUTSIDE RECORDS SUMMARY | 2025-07-08 16:41 | XMS_ITS | Data Portability ---
Author Organization [place] [facility], Allergy Address [address] [address] Care Team Providers Care Cmm Technician Name Role Phone CODI BORJAS Primary Care Provider [phone] Assessment No assessment recorded. Plan of Treatment Reminders Order Date Submit Date Provider Last Modified By Organization Details Last Modified Time Details Appointments None recorded. Lab None recorded. Referral None recorded. Procedures None recorded. Surgeries laryngosco py, direct operative with operating microscope or telescope with biopsy (SURG) 2024 025 [email or web address] Not available 16:25:48 Imaging None recorded. Medication Orders None recorded. Patient TargetsNo targets recorded. Patient InstructionsNo instructions recorded. Reason for Referral None Reported. Results Created Date Observation Date Name Description Value Unit Range Abnormal Flag Note LastModifiedBy Organization Detail LastModifiedTime 12/21/19 25 12/20/2024 TISSU E EXAM .note See Note Origi nal Order ing Provi july: YECENIA N BUSEK MIREYA [facility] - [address], Brittany johnson, [place] [address] Not Available [facility] [place] [facility] Dept [address] [facility], [place], [address], 12/23/2024 08:45:34 12/21/1912/20/2024 TISSU E EXAM final diagnosis A. 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 Laryn x, Left poste rior subgl ottis : -SQUA MOUS CELL CARCI NOMA, INVAS NUHA, CONVE NTION AL TYPE C. Laryn x, Left poste rior commi sure: -SQUA MOUS CELL CARCI NOMA, INVAS NUHA, CONVE NTION AL TYPE Elect jacky wildersree mei d by Phillip fitzgerald MD on 025 at 8:44 AM Not Available [facility] [place] [facility] Dept [address] [place] [address], [place], [address], 12/23/2024 08:45:34 12/21/19 25 12/20/2024 TISSU E EXAM gross description A. Oral Cavity , Left anteri or cord: Label ed left anteo ral cav . Recei jenn in forma beatriz, on Telfa are two soft to friab le, fabian-p ink to red tissu e fragm ents with attac hed blood measu ring appro ximat daniela 0.25 cm in great est diame ter, which are wrapp ed in paper and submi tted in toto in one casse tte, two piece s, multi ple level s. B. Oral Cavit y, Left poste rior subgl ottis : Label ed left post oral cav . Recei jenn in forma beatriz, on sheet s of Telfa , is a 1.4 x 0.8 x 0.[address] of rubbe ry, fabian-p ink to red tissu e fragm ents with minim al attac hed blood clot, which are wrapp ed in paper and submi tted in toto in one casse tte, with multi ple piece s, multi ple level s. C. Oral Cavit y, Left poste rior commi sure: Label ed left post oral cav . Recei jenn in forma beatriz, on Telfa , are two soft to rubbe ry, fabian-p ink to red tissu e fragm ents measu ring appro ximat daniela 0.15 cm in great est diame ter with minim al attac hed blood , which are wrapp ed in paper and submi tted in toto in one casse tte, two piece s, multi ple level s. TS Not Available [facility] [place] [facility] [address] [facility] [place], [address], 12/23/2024 08:45:34 12/21/19 25 12/20/2024 TISSU E EXAM disclaimer Unles s other kulkarni speci fied, all tissu e is 10% NB forma beatriz fixed and paraf fin embed ded. Not Available [facility]/ Dept [address] [place] [address], [address], 12/23/2024 08:45:34 12/21/19 25 12/20/2024 H&P No observ ation record ed. [facility]/S Dept [address] [place] [address], [address], 12/20/2024 14:56:26 12/21/19 25 12/20/2024 op note No observ ation record ed. [facility]/S Dept [address] [place] [address], [place], [address], 12/20/2024 14:56:26 12/25/19 25 12/20/2024 clini kenneth photo * No observ ation record ed. [email or web address] Not Available 09/2024 09:46:17 01/04/20 25 01/02/2025 CT, neck, soft tissu e, w/ contr ast No observ ation record ed. [facility] (Medical Records) [address] [facility], [place], [address], 01/13/2025 11:24:30 05/13/20 25 imagi ng/di agnos tic resul t No observ ation record ed. [email or web address] Not Available 2024 14:10:27 Result Notes None recorded. 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 Procedures Surgical History Date Name Laterality Status Provider Name and Address Organization Details Recorded Time 12/21/19 25 direct laryngoscopy with biopsy completed NIKO BARRAZA MD [address] [facility],[place] [address], [place], [address], [facility] - [facility] [place] 12/20/2024 15:10:05 11/22/19 25 Fiberoptic Laryngoscopy (Comprehensive) completed NIKO BARRAZA MD [address] [facility],[place] [address], [place], [address], [facility] - [facility] [place] 11/25/2024 07:48:15 Imaging Results None recorded. Procedure Notes None recorded. Medical Equipment None Reported. Allergies No known drug allergies Medications Name Sig Start Date Stop Date Status Note LastModified by Organization Details LastModified Time atorvastati n 20 mg tablet TAKE 1 TABLET BY MOUTH EVERY DAY active Not Available Not Available No t Available potassium chloride ER 20 mEq tablet,exte nded release(par t/cryst) TAKE 1 TABLET BY MOUTH EVERY DAY 11/21 completed Not Available Not Available Not Available ibuprofen 600 mg tablet TAKE 1 TABLET BY MOUTH THREE TIMES A DAY NEEDED FOR PAIN 11/21 completed Not Available Not Available Not Available fluticasone propionate 50 mcg/actuati on nasal spray,suspe nsion USE 1 SPRAY INTRANASA LLY 2 TIMES A DAY FOR 90 DAYS 11/21 completed Not Available Not Available Not Available vitamin B complex capsule TAKE 1 CAP ORALLY DAILY FOR 90 DAYS active Not Available Not Available No t Available Ventolin HFA 90 mcg/actuati on aerosol inhaler TAKE 2 PUFFS BY MOUTH EVERY 6 HOURS NEEDED FOR SHORTNESS OF BREATH /WHEEZE active Not Available Not Available No t Available fenofibrate nanocrystal lized 145 mg tablet TAKE 1 TABLET BY MOUTH EVERY DAY active Not Available Not Available No t Available cholecalcif dong (vitamin D3) 50 mcg (2,000 unit) capsule TAKE 1 CAPSULE ORALLY DAILY FOR 90 DAYS active Not Available Not Available No t Available Spiriva Respimat 2.5 mcg/actuati on solution for inhalation TAKE 2 PUFFS BY MOUTH EVERY DAY active Not Available Not Available No t Available Vitals Date Recorded Body height Body mass index (BMI) Body weight Systolic And Diastolic Provider Name and Address Organization Details Last Updated DateTime 11/21/2024 175.26 cm 26.3 kg/m2 25445.44 g 108/64 mm[Hg] Jaimee Harris [place] [facility] 11/21/2024 16:06:06 Social History None recorded. Functional Status None recorded. Mental Status None recorded. Family History Nothing Reported. Medical History Condition Response COPD Y Past Encounters Encounter ID Performer Location Encounter Start Date Encounter Closed Date Diagnosis/Indication Diagnosis SNOMED-CT Code Diagnosis ICD10 Code Diagnosis IMO Codes Diagnosis Note [id number] NIKO BARRAZA MD [facility] [address] [address] 11/21/2024 15:45:01 11/25/2024 09:57:26 Neoplasm of vocal cord 203102982 D49.1 [id number] 59-year-ol d male, smoker, presents to [facility] for evaluation of throat. He has had symptoms of sore throat, loss of voice without any otalgia or difficulty swallowing for a year and a half. He has not had any trouble breathing. On exam today, there is mucosal lesion involving the left true cord with some thickening of the cord with the plaque overlying some polypoid edema along the posterior cord. There is no obstructiv e mass. I did recommend biopsy to rule out any malignancy . We discussed risks of bleeding, infection, need for further procedures , possible damage to teeth and gums. Finding of tobacco use and exposure 236159823 Z72.0 [id number] Health Concerns Section Related Observation LastModified by Organization Detai ls LastModified Time None Recorded Concern Status LastModified by Organization Details LastModified Time None Recorded Advance Directives Directive None Recorded Payers Insurance Date Sequence Insurance Name Policy Number Policy Denney Covered Member ID Denney Member ID Guarantor Name 02/14/2025 1 [facility] (MEDICAID REPLACEMENT - HMO) VALENTINA Guzman [id number] Dennys Guzman 12/25/2024 1 [facility] (POS) Dennys Guzman [id number] Dennys Guzman Notes Date Note Type Note Provider Name and Address Organization Details Recorded Time 11/21/2024 text/html 59 yo M smoker presents for evaluation of his throatSymptoms 1.5 yearsore throatloss of voiceno ear pain no trouble swallowing coughed up some pieces of pea size skin no trouble breathing 1 ppd NIKO BARRAZA MD [address] [place] [address], [address], [place] [facility] 11/25/2024 07:51:22
--- OUTSIDE RECORDS SUMMARY | 2025-07-08 16:41 | XMS_ITS | Encounter Summary ---
Author Organization [employer] Address [address] [facility] [address] [place] [address] Care Team Providers Care Marble Setter Name Role Phone Unavailable Primary Care Provider Unavailabl e Reason for Visit * Reason Onset Date Comments medication 08/24/2023 Encounter Details Date Type Department Care Team (Late st Contact Info) Description 08/24/2023 Telephone [facility] ADULT D[facility] [address] [place] [address] Daysi Cruz DDS [address] [place] [address] medication Social History Tobacco Use Types Packs/Day [...]
--- OUTSIDE RECORDS SUMMARY | 2025-07-08 16:41 | XMS_ITS | Clinical Summary ---
Author Organization [facility] Address [address] [facility] [address] [place] [address] Care Team Providers Care Dipper Machine Operator Name Role Phone Unavailable Primary Care Provider [...] Active Problems Problem Noted Date Diagnosed Date History of cancer of larynx 01/15/2025 Pain due to dental caries 08/25/2023 Non-restorable [...] Sign Reading Time Taken Comments Blood Pressure 108/70 01/15/2025 1:56 PM EDT Pulse 66 01/15/2025 1:56 PM EDT Temperature - - Respiratory Rate - - Oxygen Saturation - - Inhaled Oxygen Concentration - - Weight - - Height - - Body Mass Index - - Plan of Treatment Health Maintenance Due Date Last Done Comments CT Colonography 1967 Colonoscopy 1967 Colorectal Cancer Screening 1967 Dental Prophylaxis 1967 Depression Screening 1967 FIT DNA/Cologuard 1967 FIT 1967 FOBT 1967 HIV Screening 1967 Lipid Panel 1967 SDOH Screening 1967 Sigmoidoscopy 1967 Disability Screening 1967 Alcohol/Substance Use Screening 1979 Hepatitis C Screening 09/26/1985 DTaP/Tdap/Td Vaccines (1 - Tdap) 09/26/1986 Hepatitis B Vaccines (1 of 3 - 19+ 3-dose series) 09/26/1986 Pneumococcal Vaccine: 50+ Years (1 of 2 - PCV) 09/26/1986 Zoster Vaccines (1 of 2) 09/26/2017 Dental X-Ray: Bitewings 08/25/2024 08/24/2023 COVID-19 Vaccine (3 - 2024-2 6 season) 2025 12/02/2020, 11/04/2020 Influenza Vaccine (#1) 2025 Dental Oral Exam 07/18/2025 01/15/2025 Tobacco Screening 01/15/2026 01/15/2025 Dental X-Ray: Full Mouth 01/17/2028 01/15/2025 RSV Patients and Patients Aged 60 years or older (1 - [...] Procedure Name Priority Date/Time Associated Diagnosis Comments PANORAMIC RADIOGRAPHIC IMAGE Routine 01/15/2025 1:30 PM EDT COMPREHENSIVE ORAL EVALUATION - NEW OR ESTABLISHED PATIENT Routine 01/15/2025 1:30 PM EDT BITEWING - SINGLE RADIOGRAPHIC IMAGE Routine 08/24/2023 1:00 PM EST Pain due to dental caries from Last 3 Months or Most Recently Relevant to Health Maintenance Insurance [facility] MEDICAID STAND ADULT
== END 2025-07-08 13:45 | disposition home or self-care (01) ==
LOC: HO.HMCH 12:52
PROVIDERS: PCP Internal Medicine; Visit Provider Internal Medicine
DX: C32.0 Malignant neoplasm of glottis (principal); E78.2 Mixed hyperlipidemia; J44.9 Chronic obstructive pulmonary disease, unspecified; R73.01 Impaired fasting glucose; J30.9 Allergic rhinitis, unspecified; E55.9 Vitamin D deficiency, unspecified; K21.9 Gastro-esophageal reflux disease without esophagitis; E87.6 Hypokalemia; F10.90 Alcohol use, unspecified, uncomplicated; F17.200 Nicotine dependence, unspecified, uncomplicated

== ENCOUNTER → 2025-07-08 12:51 | Outpatient (BNVA) | payer OTHER, SELFPAY | PROVIDERS: PCP Internal Medicine; Visit Provider Internal Medicine | DX: C32.0 Malignant neoplasm of glottis (principal); E78.2 Mixed hyperlipidemia; R73.01 Impaired fasting glucose; E87.6 Hypokalemia; K21.9 Gastro-esophageal reflux disease without esophagitis; J30.9 Allergic rhinitis, unspecified; J44.9 Chronic obstructive pulmonary disease, unspecified; E55.9 Vitamin D deficiency, unspecified; F10.90 Alcohol use, unspecified, uncomplicated; F17.210 Nicotine dependence, cigarettes, uncomplicated | CPT/HCPCS: 96127; 99212 ==